=== PATIENT | female | born 1995 | race Caucasian/White ===

== ENCOUNTER 2016-10-13 08:58 | Emergency (ER) | payer OTHER ==
[~2016-10-13] VITALS: Ht 172.7 cm; Wt 81.6 kg
--- NOTE | 2016-10-13 09:37 | ED PSYCHIATRIC COMPLAINT ---
History of Present Illness General Chief Complaint: Psychiatric Related Complaint Stated Complaint: "I CANT TAKE THIS ANYMORE" Source: patient, family Exam Limitations: clinical condition Vital Signs & Intake/Output Vital Signs & Intake/Output Vital Signs Date Time Temp Pulse Resp B/P Pulse O2 O2 Flow FiO2 Ox Delivery Rate 10/13 1205 96.0 87 18 139/92 98 ED Intake and Output 10/14 0000 10/13 1200 Intake Total 1000 Output Total Balance 1000 Intake, IV 1000 Patient 180 lb Weight Allergies Coded Allergies: No Known Allergies (10/13/16) Triage Note: 21 Y/O FEMALE C/O "SEVERE ANXIETY WHEN I WAKE UP; NGA BEEN UP SINCE 399 AND I CANT SETTLE DOWN". FAMILY PRESENT, REPORT PT RECENTLY DIAGNOSED WITH PTSD, STATES THERAPIST IS TRYING TO FIND MEDICATIONS THAT WORK. PT RECENTLY ON KLONIPIN BUT WAS UNABLE TO REFILL SCRIPT DUE TO GOOD THURSDAY. LAST DOSE LAST WEEK. PT UNABLE TO SIT STILL DURING TRIAGE. MOANING/CRYING/YELLING OUT. Triage Nurses Notes Reviewed? yes Onset: Abrupt Duration: day(s): (2) Timing: multiple episodes today Severity: moderate, severe Associated Symptoms: anxiety, nausea, vomiting : No Patient currently breastfeeds: No HPI: 21 y/o female with history of anxiety and recent diagnosis of PTSD presents to the ER for chief complaint of severe anxiety, nausea and vomiting. Patient moaning. History being given by aunt. SHe was recently taken off her medications by her therpist/psychiatrist team. One of her medications was clonazepam. . No SI/HI. 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 She was doing well all weekend but suddenly this morning got very sick. She states she just can't take it anymore. Past History Travel History Traveled to [place] past 21 day No Medical History Any Pertinent Medical History? 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 Yes Review of Systems Review of Systems Constitutional: Denies: chills, fever. EENTM: Reports: no symptoms. Respiratory: Denies: hemoptysis, short of breath. Cardiovascular: Denies: chest pain, palpitations. GI: Reports: nausea, vomiting. Genitourinary: Reports: no symptoms. Musculoskeletal: Reports: no symptoms. Skin: Reports: no symptoms. Neurological/Psychological: Reports: anxiety, emotional problems. Hematologic/Endocrine: Denies: bruising, bleeding. Immunologic/Allergic: Denies: splenectomy. All Other Systems: Reviewed and Negative Physical Exam Physical Exam General Appearance: well developed/nourished, alert, awake, anxious, mild distress, moderate distress Head: atraumatic Eyes: Bilateral: PERRL, EOMI. Ears, Nose, Throat: normal pharynx, normal ENT inspection, hearing grossly normal Neck: normal inspection, supple Respiratory: normal breath sounds Cardiovascular: regular rate/rhythm Gastrointestinal: soft, non-tender Extremities: normal range of motion Neurological/Psychiatric: awake, alert, anxious Appearance/Memory/Insight: neat Behavoir/Eye Contact/Speech: decreased rate of speech, ANXIOUS, ROCKING BACK AND FORTH Thoughts/Hallucinations: no apparent hallucination Skin: intact, normal color, warm/dry SAD PERSONS Done? patient not suicidal Progress Differential Diagnosis: ANXIETY, PTSD, PANIC ATTACKS Plan of Care: Laboratory Tests 10/13/16 1147: Urine Opiates Screen < 100.00, Methadone Screen < 40, Barbiturate Screen < 60, Ur Phencyclidine Scrn < 6.00, Amphetamines Screen < 100, U Benzodiazepines Scrn < 85, Urine Cocaine Screen < 50, Urine Cannabis Screen > 80.00 H 11:56 AM PATIENT IMPROVED AFTER MEDS. PENDING CRISIS CONSULT. HAD LONG CONVERSATION WITH MOTHER AT BEDSIDE WHO DOESN'T WANT PATIENT TO WAIT HERE. MAY TAKE HER TO SEE OUTPATIENT THERAPIST. NO SI/NO HI. THEY WILL DECIDE AND LET ME KNOW. (MARYSOL LIGHT,DIANE) Departure Departure Time of Disposition: 1200 Disposition: HOME OR SELF CARE Condition: Stable Clinical Impression Primary Impression: Severe anxiety Referrals: UNKNOWN (PCP/Family) Additional Instructions: Follow-up with your therapist appointment at 1:00 today with Sandy Malin. Departure Forms: Customer Survey General Discharge Information
[2016-10-13 10:01] LABS: ABSOLUTE BASOPHIL COUNT 0 /CUMM (0.0-0.2); ABSOLUTE EOSINOPHIL COUNT 0 /CUMM (0.0-0.7); ABSOLUTE GRANULOCYTE CT 6.3 /CUMM (1.4-6.5); ABSOLUTE MONOCYTE COUNT 0.3 /CUMM (0.10-0.60); BASOPHIL % 0.1 % (0.0-2.0); EOSINOPHIL % 0 % (0-5); GRANULOCYTE % 82.6 % (42.2-75.2); HEMATOCRIT 39.6 % (37-47); MEAN CORPUSCULAR HGB 29.9 PG (27.0-31.0); MEAN CORPUSCULAR HGB CONC 34.1 G/DL (33.0-37.0); MEAN CORPUSCULAR VOLUME 87.7 FL (81.0-99.0); MEAN PLATELET VOLUME 8.9 FL (7.4-10.4); PLATELET COUNT 221 /CUMM (130-400); RBC DISTRIBUTION WIDTH 13.8 % (11.5-14.5); RED BLOOD CELL CT 4.51 /CUMM (4.20-5.40); WHITE BLOOD CELL COUNT 7.7 /CUMM (4.8-10.8)
--- NOTE | 2016-10-13 10:08 | ED PSY CRISIS COLLATERAL NOTE ---
Collateral Note Collateral Note Family/Inform/Ross Contacts: Pt's therapist Sandy Jennifer called to inform that she recommended that pt's family bring her to the ED due to severe anxiety. Pt has been short of breath and crying. Pt denies any SI. Pt was admitted to [facility] earlier this year. Pt out pt prescriber is Dr. Bunn . Pt had stopped her zoloft and tried to re-start it this weekend but was not able to tolerate it. Sandy would like to be updated on pt's final dispo and can be called for any questions or continuing collaboration.
[2016-10-13 12:05] VITALS: BP 139/92
[2016-12-15] MEDS ORDERED: ZOFRAN ODT4 M1 SL (11:48)
[2016-12-15] MEDS ORDERED: ATIVAN0.5 M1 PO (11:48)
== END 2016-10-13 12:25 ==
LOC: ERH 08:58
PROVIDERS: Emergency Medicine
DX: F41.9 Anxiety disorder, unspecified (principal); R11.2 Nausea with vomiting, unspecified
CPT/HCPCS: 80307; 96361; 96374; 96375; 96376; G0480; J2405

== ENCOUNTER 2016-11-19 16:27 | Emergency (ER) | payer OTHER ==
[~2016-11-19] VITALS: Ht 172.7 cm; Wt 79.4 kg
--- NOTE | 2016-11-19 16:49 | ED PSYCHIATRIC COMPLAINT ---
History of Present Illness General Chief Complaint: Psychiatric Related Complaint Stated Complaint: ANXIETY POSITIVE SI Source: patient, family Exam Limitations: clinical condition, poor historian, physical impairment Vital Signs & Intake/Output Vital Signs & Intake/Output Vital Signs Date Time Temp Pulse Resp B/P B/P Pulse O2 O2 Flow FiO2 Mean Ox Delivery Rate 11/20 0926 97.0 122 26 162/80 100 Room Air 11/20 0639 98.6 106 16 127/70 97 Room Air 11/20 0303 97.2 94 16 118/64 97 Room Air 11/19 1632 97.8 103 16 144/100 97 Room Air ED Intake and Output 11/20 0000 11/19 1200 Intake Total 200 Output Total Balance 200 Intake, Oral 200 Patient 175 lb Weight Weight Reported by Patient Measurement Method Allergies Coded Allergies: No Known Allergies (10/13/16) Triage Note: PT STATES SHE IS HAVING A PANIC ATTACK AND SHE CAN'T TAKE IT. PT TOLD HER MOTHER THAT SHE DOESN'T WANT TO LIVE LIKE THIS ANYMORE. PT MOTHER STATES PT MAKES HERSELF VOMIT, PT HAS HAD ENDOSCOPY AND NOTHING WAS WRONG. PT MOM STATES SHE BURRIED HER GRANDFATHER TODAY. PT VOMITING BILE BUT MOM STATES SELF INDUCED. PT TOOK KLONOPIN A WHILE AGO BUT IT DID/T HELP. Triage Nurses Notes Reviewed? yes Onset: Abrupt Duration: week(s): Timing: recent history : No Patient currently breastfeeds: No HPI: 11/19/16 6:10 pm 21-year-old female presents to the emergency department for severe anxiety, depression, suicidal ideation and epigastric abdominal pain. According to the patient's mother she has been having severe issues over the past 7 months. She' s been seen and evaluated multiple times. They still do not have a diagnosis. 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 She periodically gets episodes of agitation and self-induced vomiting. She also says she has epigastric abdominal pain. She had an outpatient upper endoscopy which was negative according to the mother. Now over the past several hours she again became very anxious, she expressed that she was not feeling well and that she wanted to . Today they buried the patient's uncle. The other symptoms of an abrupt, the duration has been 7 months, the severity is significant; as her symptoms are quite difficult to the emergency department for care. (STEVIE MCCOY DO) Past History Travel History Traveled to [place] past 21 day No Medical History Any Pertinent Medical History? 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 No (STEVIE MCCOY DO) Review of Systems Review of Systems Constitutional: Denies: fever. EENTM: Reports: no symptoms. Respiratory: Denies: short of breath. Cardiovascular: Denies: chest pain. GI: Reports: abdominal pain, vomiting. Genitourinary: Reports: no symptoms. Musculoskeletal: Reports: no symptoms. Skin: Reports: no symptoms. Neurological/Psychological: Reports: anxiety, depressed. Hematologic/Endocrine: Reports: no symptoms. (STEVIE MCCOY DO) Physical Exam Physical Exam General Appearance: severe distress Head: atraumatic Eyes: Bilateral: normal appearance, PERRL, EOMI. Ears, Nose, Throat: normal pharynx, normal ENT inspection Neck: normal inspection, supple, full range of motion Respiratory: normal breath sounds, chest non-tender, no respiratory distress Cardiovascular: regular rate/rhythm Gastrointestinal: soft, tenderness Extremities: normal range of motion Neurological/Psychiatric: no motor/sensory deficits, awake, agitated, alert Appearance/Memory/Insight: disheveled Behavoir/Eye Contact/Speech: cooperative Thoughts/Hallucinations: normal thought pattern Skin: intact, normal color, warm/dry SAD PERSONS SAD PERSONS Response Value Depression/Hopelessness? yes 2 Previous Attempts/Psych Care yes 1 Rational Thinking Loss? yes 2 Single//? yes 1 Social Support? has support 0 Stated Future Intent? yes 2 Total 8 SAD PERSONS Done? yes (STEVIE MCCOY DO) Physical Exam Gastrointestinal: tenderness (YANIV LIGHT,STEVIE Cowart) Progress Differential Diagnosis: drug intoxication, drug overdose, drug withdrawal, depression Plan of Care: Orders Procedure Date/time Status Add-on Test (ER Only) 11/19 1950 Active URINALYSIS 11/19 1930 Complete URINE DRUGS OF ABUSE 11/19 1924 Complete Continuous Observation Monitor 11/19 180 Active ED CRISIS PSYCH CONSULT 11/19 1805 Active LIPASE 11/19 173 Complete HUMAN BETA HCG SCREEN 11/19 1729 Complete COMPREHENSIVE METABOLIC PANEL 11/19 1729 Complete CBC WITHOUT DIFFERENTIAL 11/19 1729 Complete AMYLASE 11/19 1729 Complete Current Medications Sig/Annie Start time Last Medication Dose Stop Time Status Admin Al Hydroxide/Mg 30 ML ONCE ONE 11/20 929 AC Hydroxide 11/20 930 (Maalox Plus) Omeprazole 20 MG ONCE ONE 11/20 929 AC (Prilosec) 11/20 930 Laboratory Tests 11/19/16 193: Urine Opiates Screen < 100.00, Methadone Screen < 40, Barbiturate Screen < 60, Ur Phencyclidine Scrn < 6.00, Amphetamines Screen < 100, U Benzodiazepines Scrn < 85, Urine Cocaine Screen < 50, Urine Cannabis Screen 79.90 H, Urine Color YEL , Urine Clarity CLEAR, Urine pH 7.5, Ur Specific [place] 1.025, Urine Protein 30 H, Urine Ketones 40 H, Urine Nitrite NEG, Urine Bilirubin NEG, Urine Urobilinogen 1.0, Ur Leukocyte Esterase NEG, Ur Microscopic SEDIMENT EXAMINED, Urine RBC 1-3, Urine WBC 3-5 H, Ur Epithelial Cells MANY H, Urine Bacteria MANY H, Urine Mucus MANY H, Urine Hemoglobin LARGE H, Urine Glucose NEG 11/19/16 183: Anion Gap 14, Estimated GFR > 60, BUN/Creatinine Ratio 23.3, Glucose 116 H, Calcium 10.3 H, Total Bilirubin 0.6, AST 22, ALT 39, Alkaline Phosphatase 59, Total Protein 7.5, Albumin 4.9, Globulin 2.6, Albumin/Globulin Ratio 1.9, Amylase 37, Lipase 52, Total Beta HCG NEGATIVE, CBC w Diff NO MAN DIFF REQ, RBC 4.80, MCV 87.5, MCH 29.2, RDW 13.4, MPV 9.0, Gran % 91.9 H, Lymphocytes % 5.7 L, Monocytes % 2.4, Eosinophils % 0, Basophils % 0 L, Absolute Granulocytes 11.7 H, Absolute Lymphocytes 0.7 L, Absolute Monocytes 0.3, Absolute Eosinophils 0, Absolute Basophils 0, PUBS MCHC 33.4 7:14 PM 11/19 PATIENT SIGNED OUT TO ME BY DR MCCOY. PENDING CRISIS EVALUATION. (MARYSOL LIGHTDIANE) Initial ED EKG: none (STEVIE MCCOY DO) Hand-Off Endorsed To: LOPEZ PRASAD MD Endorsed Time: 2300 Pending: consult (CRISIS REEVLUATION) (DIANE HANEY MD) Hand-Off Endorsed To: STEVIE CLINE MD Endorsed Time: 0700 Pending: consult (LOPEZ PRASAD MD) Comments: 11/20/2016 7:42:43 AM patient signed out to me by Dr. 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 11/20/2016 9:29:35 AM crisis evaluation complete. Patient has a follow-up appointment with [facility]. Aleksandra waiting for her mother to pick her up. When asked about abdominal pain and she states that she is having acid reflux discomfort for which she usually takes Nexium. I have ordered Maalox for more prompt relief of her discomfort along with the Nexium. (STEVIE CLINE MD) Departure Departure Disposition: STILL A PATIENT Condition: Stable Referrals: UNKNOWN (PCP/Family) Departure Forms: Customer Survey General Discharge Information Comments 7 pm The patient will be signed out to Dr Haney. (STEVIE MCCOY DO) Departure Clinical Impression Primary Impression: Anxiety Secondary Impressions: Acid reflux Qualifiers: Esophagitis presence: without esophagitis Qualified Code: K21.9 - Gastro-esophageal reflux disease without esophagitis Depression Qualifiers: Depression Type: unspecified Qualified Code: F32.9 - Major depressive disorder, single episode, unspecified Additional Instructions: Follow-up with your IOP appointment today at 2 PM. Follow-up with your primary care physician for reevaluation of your abdominal pain. Return if any concerns or sudden worsening. Please note that there might be incidental findings in your evaluation that are unrelated to the current emergency department visit. Please notify your primary care doctor about this emergency department visit in order to obtain and review all of the testing performed so that these incidental findings can be monitored as needed. If you had an x-ray performed, please understand that some fractures may not be seen on the initial set of x-rays. If your symptoms persist you might need a repeat set of x-rays to check for such a fracture. If you had a laceration evaluated, please understand that foreign bodies such as glass or wood may not be visible to the naked eye or on plain x-rays. If the wound becomes red, swollen, increasingly more painful or if there is any drainage from the wound, please have it reevaluated by a physician for the possibility of a retained foreign body. Thank you for choosing the [facility] Emergency Department for your care. It was a pleasure to serve you today. Stevie Cline M.D. [facility] (YANIV LIGHT,STEVIE Cowart) Critical Care Note Critical Care Note Critical Care Time: 30-74 min Comments: The patient was treated with IM Ativan. She was placed in a quiet room. A sitter was ordered. Crisis consultation was requested she was given a GI cocktail. She was also treated with Zofran. (STEVIE MCCOY DO)
[2016-11-19 18:51] LABS: ABSOLUTE BASOPHIL COUNT 0 /CUMM (0.0-0.2); ABSOLUTE EOSINOPHIL COUNT 0 /CUMM (0.0-0.7); ABSOLUTE GRANULOCYTE CT 11.7 /CUMM (1.4-6.5); ABSOLUTE LYMPH COUNT 0.7 /CUMM (1.2-3.4); ABSOLUTE MONOCYTE COUNT 0.3 /CUMM (0.10-0.60); BASOPHIL % 0 % (0.0-2.0); EOSINOPHIL % 0 % (0-5); MEAN CORPUSCULAR HGB 29.2 PG (27.0-31.0); MEAN CORPUSCULAR HGB CONC 33.4 G/DL (33.0-37.0); MEAN CORPUSCULAR VOLUME 87.5 FL (81.0-99.0); PLATELET COUNT 254 /CUMM (130-400); RBC DISTRIBUTION WIDTH 13.4 % (11.5-14.5); WHITE BLOOD CELL COUNT 12.7 /CUMM (4.8-10.8)
[2016-11-19 19:04] LABS: GRANULOCYTE % 91.9 % (42.2-75.2)
--- NOTE | 2016-11-19 20:03 | ED PSYCH CRISIS CONSULTATION ---
Crisis Consult Basic Assessment Date of Consult: 11/19/16 Responsible Person/Accompanied By: brought in by her Mom Insurance Authorization: Insurance #1: Insurance name: NATALIA CASAS Phone number: Policy number: [id number] Group number: Authorization number: ED Provider: Patient's ED Provider: LEESA MCCOY DO Primary Care Physician: Patient's PCP: UNKNOWN PCP's Phone Number: Current Psychiatrist: A in [place] name unknown Chief Complaint: Psychiatric Related Complaint Patient's Quote: "my anxiety" Present Illness: Pt is a 21 year old female, arriving to ER, after being at her Uncles today and his wake last night. she reports she felt anxious at dinner last night after the wake, and reports I knew this was coming, because "I had a lot of friends of overdoses, and a few family members pass away recently and this , just triggered me". Pt is seen by Sandy Malin outpatient, and is prescribed zoloft 150mg and klonidine by a DR in [place] but cant recall his name. Pt reports she weaned herself off of klonipin, but had a few left over and took one today. She uses cannabis often and has for the past 3 years. She was seen at [facility] in Jul of this year, and did not follow up with IOP.. 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 Pt was given ativan in ER, and felt it was helpful, but she reports feeling tired, and was groggy during evaluation. Upon arrival to ER, she was unconsolable and stated she couldnt live this way anymore, pt denies active si and denies previous attempts. Denies stephania/ah/vh. Patient's Address: [address] [place] [address] Other Who Do You Live With? Other (see notes) Family/Informants Interviewed: Her Mother called and reports she had a bad day, and she brought her here to help regulate her anxiety and decrease this symptomology. She is concerned that she is smoking pot, but she belives she is lonely, and that something is wrong with her. Allergies - Coded Allergies: No Known Allergies (10/13/16) Laboratory Results: Laboratory Tests 11/19/16 1931: Urine Opiates Screen Pending, Methadone Screen Pending, Barbiturate Screen Pending, Ur Phencyclidine Scrn Pending, Amphetamines Screen Pending, U Benzodiazepines Scrn Pending, Urine Cocaine Screen Pending, Urine Cannabis Screen Pending, Urine Color Pending, Urine Clarity Pending, Urine pH Pending, Ur Specific [place] Pending, Urine Protein Pending, Urine Ketones Pending, Urine Nitrite Pending, Urine Bilirubin Pending, Urine Urobilinogen Pending, Ur Leukocyte Esterase Pending, Ur Microscopic Pending, Urine Hemoglobin Pending, Urine Glucose Pending 11/19/16 1836: Anion Gap 14, Estimated GFR > 60, BUN/Creatinine Ratio 23.3, Glucose 116 H, Calcium 10.3 H, Total Bilirubin 0.6, AST 22, ALT 39, Alkaline Phosphatase 59, Total Protein 7.5, Albumin 4.9, Globulin 2.6, Albumin/Globulin Ratio 1.9, Amylase 37, Lipase 52, Total Beta HCG NEGATIVE, CBC w Diff NO MAN DIFF REQ, RBC 4.80, MCV 87.5, MCH 29.2, RDW 13.4, MPV 9.0, Gran % 91.9 H, Lymphocytes % 5.7 L, Monocytes % 2.4, Eosinophils % 0, Basophils % 0 L, Absolute Granulocytes 11.7 H, Absolute Lymphocytes 0.7 L, Absolute Monocytes 0.3, Absolute Eosinophils 0, Absolute Basophils 0, PUBS MCHC 33.4 (JAVED WESTFALL,ALVARO) Addendum Addendum Crisis re-eval : Pt presents as cooperative and friendly. She denies feeling suicidal/homicidal and no AVH. Pt says her mom thinks because she doesn't like feeling anxious that means she is SI+ which is not the case. Pt does not have hx of suicide attempts and has no plan or intent. Pt stated recent stressors of bereavement issues losing friends and family since February. She said she does not like how she physically feels- ie panic attacks, nausea and crying. Pt does not feel she needs inpatient admission and would like to explore IOP. This comic writer discussed with the pt: the possible symptoms of her cannabis use can attribute to her increase in anxiety/panic/nausea --as pt reports daily use. Pt is willing to stop use for program. This comic writer spoke with mom Kirti, who is adamant that the pt needs to change and she can't take her anxiety anymore. Clinician discussed the IOP program at length with mom and the benefits of HLOC as it gives structure/group and individual support and medication management. Mom is aware pt needs to follow through with recommendations to address symptoms of depression and anxiety. SW consulted with Dr. Bhatia and recommends IOP LOC . Pt is scheduled today for IOP intake at 2PM. Pt is agreeable to attend, mom is aware and will transport pt there. 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 Past Surgical History Surgical History: non-contributory Psychosocial History Strengths/Capabilities: employed, family involvement, in treatment Psychiatric Treatment History Psych Treatment Psychiatric Treatment Yes Inpatient Treatment Yes Outpatient Treatment Yes Location of Treatment Sandy Gonzalez LCSW Reason for Treatment anxiety/PTSD/panic Dates of Treatment Jul 2016 for 3 days and currently with outpatient Response to Treatment She is not managing anxiety Diagnosis by History: anxiety PTSD panic Substance Use/Abuse History Drug Use/Abuse Substances Used/Abused Yes Substance Used/Abused Marijuana First Use 3 years ago Last Used few days ago How much used/taken unknown How often varies For how long 3 years Route of use inhale Substance Abuse Treatment Substance Abuse Treatment Past Substance Abuse [place] No (JAVED WESTFALL,ALVARO) Current Mental Status Mental Status Orientation: Person, Place, Situation Affect: Anxious, Flat, Lonely Speech: Soft, WNL Neuro-vegetative: Energy Decreased, Helpless, Sleep Disturbance Appearance Appearance- Dress/Hygiene: tearful, well groomed Behaviors Thought Process: Flight of Ideas Thought Content: Somatic Memory: WNL Insight: Fair SI/HI Risk Assessment Past Suicidal Ideation/Attempts No Current Suicidal Ideation/Att No Past Homicidal Ideation/Att: No Current Homicidal Ideation/Attempts No Degree of Intent: Self Destructive/No , Thoughts/No Intent Risk Factors: high anxiety/distress, substance abuse, poor impulse control, limited support Lethality Ratin PTSD Checklist PTSD Done? patient declined ED Management Sitter: Yes Restraints: No (ALVARO BURT LCSW) DSM5/PS Stressors/Medical Prob Diagnosis' (DSM 5, Stressors, Medical): Panic/[id number] Unspecified trauma F43.10 Current GAF: 32 (ALVARO BURT LCSW) Departure Disposition Psych Medical Clearance Date: 11/19/16 Medically Cleared at: 1900 Time Started: 1899 Time Ended: 1999 Psychiatrist Consulted: Jerica LIGHT,Edward Date Disposition Established: 11/19/16 Time Disposition Established: 2021 Plan for Disposition - Modality: Hold over/ re eval for possible inpatient Rationale for Disposition: consulted with Dr. Pizano pt to be held over, Mom has some concerns with how daughter is behaving lately, pt has high anxietypanic symptoms. Referrals UNKNOWN (PCP/Family) (ALVARO BURT LCSW)
[2016-11-20 09:52] VITALS: BP 152/72
[2016-12-15] MEDS ORDERED: ZOFRAN ODT4 M1 SL (11:48)
[2016-12-15] MEDS ORDERED: ATIVAN0.5 M1 PO (11:48)
== END 2016-11-20 09:54 ==
LOC: ERH 16:27
PROVIDERS: Emergency Medicine
DX: F41.9 Anxiety disorder, unspecified (principal); K21.9 Gastro-esophageal reflux disease without esophagitis; F32.9 Major depressive disorder, single episode, unspecified
CPT/HCPCS: 80307; 81001; 96372; G0463; J3101

== ENCOUNTER 2016-12-17 07:18 | Emergency (ER) | payer OTHER ==
[~2016-12-17] VITALS: Ht 172.7 cm; Wt 81.6 kg
[~2016-12-17 07:18] MED LIST: ATIVAN0.5 M1 PO; ZOFRAN ODT4 M1 SL
[2016-12-17 07:22] VITALS: BP 130/74
--- NOTE | 2016-12-17 07:31 | ED GI/GU/ABDOMINAL COMPLAINT ---
History of Present Illness General Chief Complaint: Abdominal Pain/Flank Pain Stated Complaint: ABD PAIN,"ACID REFULX" Source: patient, old records Exam Limitations: no limitations Vital Signs & Intake/Output Vital Signs & Intake/Output Vital Signs Date Time Temp Pulse Resp B/P B/P Pulse O2 O2 Flow FiO2 Mean Ox Delivery Rate 12/17 0722 98.0 68 18 130/74 100 Allergies Coded Allergies: No Known Allergies (10/13/16) Reconcile Medications Lorazepam (Ativan) 0.5 MG TABLET 1 TAB PO BIDP PRN anxiety Ondansetron (Zofran Odt) 4 MG TAB.RAPDIS 1 TAB SL TID nausea Triage Note: PT TO ED FOR ABD PAIN, VERY HISTRIONIC IN TRIAGE, PT IMMEDIATELY STATING "I NEED TO BE OUT OF HERE BY 8:30, I JUST NEED PAIN MEDS AND THEN IM LEAVING" Triage Nurses Notes Reviewed? yes ? N Is pt currently ? No Onset: Abrupt Duration: hour(s): (FEW) Timing: multiple episodes today Location: epigastric Radiation: chest Associated Symptoms: abdominal pain, nausea/vomiting HPI: This is a 21 old female presents to the ER with chief complaint of bad acid reflux. She was moaning and crying in triage. She states that she vomited multiple times since 3 AM. She is a history of reflux is on Nexium daily. She did not take her Nexium today. She states she just needs a GI cocktail which usually resolves her acid reflux and needs to go to work at 8:30. Patient denies feeling anxious. She was here 2 days ago for feeling very anxious. She states she felt anxious earlier but calmed herself down. Patient currently living with her boyfriend's parents. Past History Travel History Traveled to [place] past 21 day No Medical History Any Pertinent Medical History? 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 No Review of Systems Review of Systems Constitutional: Denies: chills, fever. EENTM: Reports: no symptoms. Respiratory: Denies: cough, short of breath. Cardiovascular: Denies: chest pain, palpitations. GI: Reports: see HPI, abdominal pain, nausea, vomiting. Genitourinary: Reports: no symptoms. Musculoskeletal: Reports: no symptoms. Skin: Reports: no symptoms. Neurological/Psychological: Reports: no symptoms. Hematologic/Endocrine: Denies: bruising, bleeding, polyuria, polydipsia. Immunologic/Allergic: Denies: splenectomy. All Other Systems: Reviewed and Negative Physical Exam Physical Exam General Appearance: well developed/nourished, alert, awake, anxious, mild distress, moderate distress Head: atraumatic Eyes: Bilateral: PERRL, EOMI. Ears, Nose, Throat, Mouth: hearing grossly normal, moist mucous membrane Neck: normal inspection, supple, full range of motion Respiratory: normal breath sounds, chest non-tender, no respiratory distress Cardiovascular: regular rate/rhythm Peripheral Pulses: 2+ radial (R), 2+ radial (L) Gastrointestinal: normal bowel sounds, soft, tenderness (MILD EPIGASTRIC) Extremities: normal range of motion Neurologic/Psych: awake, alert, oriented x 3 Skin: intact, normal color, warm/dry Core Measures ACS in differential dx? No Severe Sepsis Present: No Septic Shock Present: No Progress Differential Diagnosis: pancreatitis, PUD/GERD, anxiety Plan of Care: GI COCKTAIL ADMINISTERED 7:59 AM PATIENT IMPROVED AFTER GI COCKTAIL. WISHES TO BE DISCHARGED AT THIS TIME. Initial ED EKG: none Departure Departure Time of Disposition: 758 Disposition: HOME OR SELF CARE Condition: Stable Clinical Impression Primary Impression: GERD (gastroesophageal reflux disease) Referrals: JONES RAO MD (PCP/Family) Additional Instructions: Continue your Nexium for your acid reflux. Please continue with dry of the appointments regarding anxiety. Follow up with your doctor in the office. Departure Forms: Customer Survey General Discharge Information
== END 2016-12-17 08:00 ==
LOC: ERH 07:18
DX: K21.9 Gastro-esophageal reflux disease without esophagitis (principal)

== ENCOUNTER 2017-10-28 10:14 | Emergency (ER) | payer OTHER ==
[~2017-10-28] VITALS: Ht 172.7 cm; Wt 99.8 kg
--- NOTE | 2017-10-28 10:51 | ED PSYCHIATRIC COMPLAINT ---
History of Present Illness General Chief Complaint: General Adult Stated Complaint: ANXIET ATTACK, PER MOM Source: patient, mother Exam Limitations: clinical condition Vital Signs & Intake/Output Vital Signs & Intake/Output Vital Signs Date Time Temp Pulse Resp B/P B/P Pulse O2 O2 Flow FiO2 Mean Ox Delivery Rate 10/28 1307 97.6 87 16 114/72 99 Room Air 10/28 1022 97.8 93 22 166/88 98 Room Air Allergies Coded Allergies: No Known Allergies (10/13/16) Reconcile Medications Mirtazapine 15 MG TABLET 1 TAB PO QPM SLEEP (Reported) Sertraline HCl (Zoloft) 100 MG TABLET 1 TAB PO DAILY MENTAL HEALTH (Reported) Triage Note: PT FROM HOME C/OC ANXIETY ATTACK. PT IS HAVING AN ACTIVE PANIC ATTACK IN TRIAGE, CRYING, YELLING, AND SQUEEZING CHEST. PT IS UNABLE TO ANSWER QUESTIONS, PTS MOTHER STATES SHE HAS PANIC ATTACKS OFTEN IN THE PAST 2 WEEK 2 SEPERATE PANIC ATTACKS. VSS. PT STATES "CHEST PAIN AND SOB" PTS VSS. Triage Nurses Notes Reviewed? yes : No Patient currently breastfeeds: No HPI: Patient presents for evaluation of severe chest and abdominal pain with vomiting induced by anxiety. Patient has had this same symptom complex in the past. She is currently taking Zoloft for anxiety but it doesn't seem to be helping all that much. History is extremely limited secondary to the profound distress of this patient. History obtained primarily from mother. Past History Travel History Traveled to [place] past 21 day No Medical History Any Pertinent Medical History? 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 No Review of Systems Review of Systems Constitutional: Reports: no symptoms. EENTM: Reports: no symptoms. Respiratory: Reports: no symptoms. Cardiovascular: Reports: no symptoms. GI: Reports: see HPI. Genitourinary: Reports: no symptoms. Musculoskeletal: Reports: no symptoms. Skin: Reports: no symptoms. Neurological/Psychological: Reports: see HPI. Hematologic/Endocrine: Reports: no symptoms. Immunologic/Allergic: Reports: no symptoms. All Other Systems: Reviewed and Negative Physical Exam Physical Exam General Appearance: see below Neurological/Psychiatric: see below Comments: General: Alert, calm, cooperative Head: Normocephalic, atraumatic Eyes: Normal inspection, no nystagmus, EOMI Ears: Normal inspection Nose: Normal inspection Throat: Moist mucosa Neck: Supple, no goiter Heart: Regular rate and rhythm, no murmurs rubs or gallops Lungs: Clear to auscultation bilaterally with good air entry Abdomen: Soft nontender nondistended, normal bowel sounds Chest: Nontender Extremities: Normal range of motion grossly, mild tremors present, no cyanosis clubbing or edema of the upper extremities Neurologic: cranial nerves II through XII grossly intact, speech clear, gait normal Psychiatric: Severely anxious and distressed SAD PERSONS Done? patient not suicidal Progress Differential Diagnosis: anxiety, bipolar disorder, personality disorder, malingering Plan of Care: Orders Procedure Date/time Status Add-on Test (ER Only) 10/28 1537 Active URINE DRUG SCREEN FOR ER ONLY 10/28 1226 Complete ETHANOL 10/28 1226 Complete CBC WITHOUT DIFFERENTIAL 10/28 1226 Complete BASIC METABOLIC PANEL 10/28 1226 Complete ED CRISIS PSYCH CONSULT 10/28 1226 Active Laboratory Tests 10/28/17 1336: Urine Opiates Screen < 100, Methadone Screen 40, Barbiturate Screen < 60, Ur Phencyclidine Scrn < 6.00, Amphetamines Screen < 100, U Benzodiazepines Scrn < 85, Urine Cocaine Screen < 50, Urine Cannabis Screen > 80.00 H 10/28/17 1255: Anion Gap 11, Estimated GFR > 60, BUN/Creatinine Ratio 26.0 H, Glucose 117 H, Calcium 9.6, CBC w Diff NO MAN DIFF REQ, RBC 5.00, MCV 87.7, MCH 29.0, MCHC 33.0 , RDW 14.1, MPV 8.8, Gran % 88.7 H, Lymphocytes % 8.0 L, Monocytes % 3.3, Eosinophils % 0, Basophils % 0, Absolute Granulocytes 10.7 H, Absolute Lymphocytes 1.0 L, Absolute Monocytes 0.4, Absolute Eosinophils 0, Absolute Basophils 0, Serum Alcohol < 10.0 Departure Departure Disposition: HOME OR SELF CARE Condition: Stable Clinical Impression Primary Impression: Anxiety Referrals: Momo Chong MD (PCP/Family) Additional Instructions: Please follow up with outpatient counseling program as soon as possible. Please notify your primary care physician of this emergency department visit and treatment plan. Return if any concerns or sudden worsening. Departure Forms: Customer Survey General Discharge Information
[2017-10-28 13:11] LABS: ABSOLUTE BASOPHIL COUNT 0 /CUMM (0.0-0.2); ABSOLUTE EOSINOPHIL COUNT 0 /CUMM (0.0-0.7); ABSOLUTE GRANULOCYTE CT 10.7 /CUMM (1.4-6.5); ABSOLUTE MONOCYTE COUNT 0.4 /CUMM (0.10-0.60); BASOPHIL % 0 % (0.0-2.0); EOSINOPHIL % 0 % (0-5); HEMATOCRIT 43.8 % (37-47); MEAN CORPUSCULAR VOLUME 87.7 FL (81.0-99.0); MEAN PLATELET VOLUME 8.8 FL (7.4-10.4); PLATELET COUNT 252 /CUMM (130-400); RBC DISTRIBUTION WIDTH 14.1 % (11.5-14.5); WHITE BLOOD CELL COUNT 12.1 /CUMM (4.8-10.8)
[2017-10-28 13:43] LABS: GRANULOCYTE % 88.7 % (42.2-75.2)
[2017-10-28] MEDS ORDERED: ZOLOFT100 M1 PO (14:33)
[2017-10-28] MEDS ORDERED: MIRTAZAPINE15 M2 PO (14:33)
--- NOTE | 2017-10-28 15:22 | ED PSYCH CRISIS CONSULTATION ---
Crisis Consult Basic Assessment Date of Consult: 10/28/17 Responsible Person/Accompanied By: mom Insurance Authorization: Insurance #1: Insurance name: NATALIA CASAS Phone number: Policy number: [id number] Group number: Authorization number: ED Provider: Patient's ED Provider: Stevie Cline MD Primary Care Physician: Patient's PCP: Momo Chong MD PCP's Current Psychiatrist: none Chief Complaint: General Adult Patient's Quote: "When I wake up in the morning I have so much anxiety" Present Illness: Pt is a 22 year old female presenting to the ED with severe anxiety/ panic attack. Mother brought pt to the ED. Dr. Cline gave pt IM Ativan to help relieve symptoms of panic attack. Pt reports that she has had panic attacks for several years. Pt describes these panic atacks as overwhelming and powerful feelings, like an elephant is sitting on her chest or ants are running through her veins. She also experiences nausea, sweating and has difficulty breathing. Pt does not believe she is going to during these attacks but is fearful that these attacks will return. Pt denies SI /HI/AH/VH. Pt reports she goes through periods of times in which they occur multiple times per week but then goes for several months without a panic attack. Pt reports today was her 2nd panic attack this week. Pt is prescribed Zoloft and Mirtazepine by her PCP. She did have a prescription for Gabapentin that was prescribed as needed for anxiety but pt reports she ran out of the medication. Pt has seen a few therapists before over the last two years. The last therapist she saw was Sandy Malin. Pt reports she last saw her last summer- pt missed an appointment and never rescheduled and therapist didn't reach out. Pt did see a psychiatrist at one point. She doesn't remember his name. He prescribed Clonidine and pt reports it didn't help. Pt did 3 weeks of [facility] IOP but it interferred with her work schedule so was referred out to outpatient therapy. 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 Pt does smoke Marijuna daily (1 bowl daily). Utox was positive for cannabis and BAL was zero. We spoke about how the use of marijuana can increase anxiety. Pt reports she knows this. Mother stated that pt was told this before by a ED doctor a year ago. Pt acknowledges the information but did not demonstrate a readiness to stop smoking. Crisis completed C-SSRS. Pt has the following risk factors: previous psychiatric dx and treatment, not currently in tx, substance use, and severe anxiety. Pt has the following protective factors: identifies a reason for living, supportive family, engaged in work. [facility] consulted with Dr. Collins, on-call psychiatrist. He recommends pt have a test and a TSH test. He is in agreement with discharging patient to follow up with an outpatient provider of her choice. Pt was given contact information for the following rescources: [facility], [facility], [facility] and [facility]. [facility] requested Dr. Cline add test and TSH level. He added both tests and stated ED would call pt if needed. Patient's Address: [address] [place] [address] Other Who Do You Live With? Significant Other Family/Informants Interviewed: mom was present at end of crisis assessment Allergies - Coded Allergies: No Known Allergies (10/13/16) Current Medications - Scheduled Medications Mirtazapine 15 MG TABLET 1 TAB PO QPM SLEEP #90 (Reported) Entered as Reported by Guzman Orona on 10/28/17 1433 Sertraline HCl (Zoloft) 100 MG TABLET 1 TAB PO DAILY MENTAL HEALTH (Reported) Entered as Reported by Guzman Orona on 10/28/17 1433 Laboratory Results: Laboratory Tests 10/28/17 1336: Urine Opiates Screen < 100, Methadone Screen 40, Barbiturate Screen < 60, Ur Phencyclidine Scrn < 6.00, Amphetamines Screen < 100, U Benzodiazepines Scrn < 85, Urine Cocaine Screen < 50, Urine Cannabis Screen > 80.00 H 10/28/17 1255: Anion Gap 11, Estimated GFR > 60, BUN/Creatinine Ratio 26.0 H, Glucose 117 H, Calcium 9.6, TSH Pending, Total Beta HCG NEGATIVE, CBC w Diff NO MAN DIFF REQ, RBC 5.00, MCV 87.7, MCH 29.0, MCHC 33.0, RDW 14.1, MPV 8.8, Gran % 88.7 H, Lymphocytes % 8.0 L, Monocytes % 3.3, Eosinophils % 0, Basophils % 0, Absolute Granulocytes 10.7 H, Absolute Lymphocytes 1.0 L, Absolute Monocytes 0.4, Absolute Eosinophils 0, Absolute Basophils 0, Serum Alcohol < 10.0 Past History Past Medical History Neurological: NONE EENT: NONE Cardiovascular: NONE Respiratory: NONE Gastrointestinal: GERD Hepatic: NONE Renal: NONE Musculoskeletal: NONE Psychiatric: anxiety, substance abuse Endocrine: NONE Blood Disorders: NONE Cancer(s): 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 Past Surgical History Surgical History: non-contributory Psychosocial History Strengths/Capabilities: Employed Supportive Mom and Boyfriend Physical Limitations (Interventions): none noted Psychiatric Treatment History Psych Treatment Psychiatric Treatment Yes Inpatient Treatment No Outpatient Treatment Yes Location of Treatment various- , other outpatient providers Reason for Treatment anxiety Dates of Treatment short stents of tx over last 2-3 years Response to Treatment poor, pt stopped attending IOP due to the time committment, stopped seeing two therapists Diagnosis by History: anxiety ptsd panic Substance Use/Abuse History Drug Use/Abuse Substances Used/Abused Yes Substance Used/Abused Marijuana First Use unk Last Used 10/27/17 How much used/taken 1 bowl How often daily For how long several years Route of use inhalation Substance Abuse Treatment Substance Abuse Treatment Past Substance Abuse [place] No Current Mental Status Mental Status Orientation: Person, Place, Situation Affect: Anxious (tearful) Speech: Soft Neuro-vegetative: Sleep Disturbance Appearance Appearance- Dress/Hygiene: pt presents in blue paper scrubs adequate hygeine no remarkable features Behaviors Thought Process: Logical/Rational Thought Content: WNL Memory: WNL Insight: Fair SI/HI Risk Assessment Past Suicidal Ideation/Attempts No Current Suicidal Ideation/Att No Past Homicidal Ideation/Att: No Current Homicidal Ideation/Attempts No Degree of Intent: None Risk Factors: age (under 24/over 65), high anxiety/distress, substance abuse Lethality Ratin (mild) PTSD Checklist PTSD Done? patient declined ED Management Sitter: Yes Restraints: No DSM5/PS Stressors/Medical Prob Diagnosis' (DSM 5, Stressors, Medical): F41.0 Panic Disorder F12.20 Cannabis Use Disorder, Severe Stressors: work schedule Medical: GERD Current GAF: 48 Departure Disposition Psych Medical Clearance Date: 10/28/17 Medically Cleared at: 1500 Time Started: 1500 Time Ended: 1530 Psychiatrist Consulted: Tiago Collins MD Date Disposition Established: 10/28/17 Time Disposition Established: 1600 Plan for Disposition - Modality: Outpatient Facility: Patient to Arrange Rationale for Disposition: Pt presented to ED for panic attacks. Pt denies SI/HI/AH/VH. Pt is request outpatient for therapy and psychiarist. Pt is employed and goal directed. Pt wants panic attacks to end in order to resume her daily functioning. Referrals Arlette LIGHT,Momo (PCP/Family)
[2017-10-28 15:49] VITALS: BP 124/57
[2017-11-19] MEDS ORDERED: ZOFRAN ODT4 M1 SL (10:27)
[2017-11-19] MEDS ORDERED: NEURONTIN300 M1 PO (13:26)
== END 2017-10-28 15:56 ==
LOC: ERH 10:14
PROVIDERS: Emergency Medicine
DX: F41.9 Anxiety disorder, unspecified (principal)
CPT/HCPCS: 80307; 96372; G0463; G0480; J2550

== ENCOUNTER 2017-11-19 11:58 | Emergency (ER) | payer OTHER ==
[~2017-11-19] VITALS: Ht 167.6 cm; Wt 77.1 kg
[~2017-11-19 11:58] MED LIST changes: +MIRTAZAPINE15 M2 PO; +ZOLOFT100 M1 PO
--- NOTE | 2017-11-19 12:02 | ED PSYCHIATRIC COMPLAINT ---
History of Present Illness General Chief Complaint: Psychiatric Related Complaint Stated Complaint: +SI Source: patient, family, old records, EMS Exam Limitations: no limitations Allergies Coded Allergies: No Known Allergies (10/13/16) Reconcile Medications Gabapentin 100 MG CAPSULE 1 CAP PO TID MENTAL HEALTH (Reported) Sertraline HCl 25 MG TABLET 1 TAB PO DAILY MENTAL HEALTH (Reported) Sertraline HCl 100 MG TABLET 1 TAB PO DAILY MENTAL HEALTH (Reported) Trazodone HCl 50 MG TABLET 1 TAB PO QPM SLEEP (Reported) Triage Nurses Notes Reviewed? yes HPI: Patient was seen here earlier for a severe anxiety attack. Patient was discharged to go follow-up with her psychiatric [employer]. When she got there she told him that she wanted to do anything to it and these constant anxiety attacks. He became concerned that she was suicidal so he called the police and the ambulance and they brought her in for evaluation. Patient denies any suicidal ideations to stating that she wants these things and she is willing to do anything to cause him to stop. Patient denies any homicidal ideations. (Shun LIGHT,Aiden Gaitan) Vital Signs & Intake/Output Vital Signs & Intake/Output Vital Signs Date Time Temp Pulse Resp B/P B/P Pulse O2 O2 Flow FiO2 Mean Ox Delivery Rate 11/19 1758 98.1 83 18 116/68 98 Room Air 11/19 1559 97.8 70 20 137/76 100 Room Air 11/19 1205 98.0 91 18 152/97 98 Room Air ED Intake and Output 11/20 0000 11/19 1200 Intake Total 0 Output Total Balance 0 Intake, Oral 0 Patient 170 lb Weight Weight Reported by Patient Measurement Method (Tino Garcia MD) Past History Travel History Traveled to [place] past 21 day No Medical History Any Pertinent Medical History? 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 No (Shun LIGHT,Aiden Gaitan) Review of Systems Review of Systems Constitutional: Reports: no symptoms. EENTM: Reports: no symptoms. Respiratory: Reports: no symptoms. Cardiovascular: Reports: see HPI, chest pain. GI: Reports: see HPI, nausea. Genitourinary: Reports: no symptoms. Musculoskeletal: Reports: no symptoms. Skin: Reports: no symptoms. Neurological/Psychological: Reports: see HPI, anxiety. Hematologic/Endocrine: Reports: no symptoms. Immunologic/Allergic: Reports: no symptoms. All Other Systems: Reviewed and Negative (Shun LIGHT,Aiden Gaitan) Physical Exam Physical Exam General Appearance: well developed/nourished, alert, awake, anxious, moderate distress Head: atraumatic Eyes: Bilateral: PERRL, EOMI. Ears, Nose, Throat: normal pharynx, normal ENT inspection, hearing grossly normal Neck: normal inspection, supple Respiratory: normal breath sounds Cardiovascular: regular rate/rhythm Gastrointestinal: soft, non-tender Extremities: normal range of motion Neurological/Psychiatric: no motor/sensory deficits, awake, alert, anxious, oriented x 3 Appearance/Memory/Insight: appropriate appearance, appropriate insight Behavoir/Eye Contact/Speech: cooperative, normal speech, good eye contact Thoughts/Hallucinations: normal thought pattern, no apparent hallucination Skin: intact, normal color, warm/dry SAD PERSONS Done? CRISIS CONSULT OBATINED (Shun LIGHT,Aiden Gaitan) Progress Differential Diagnosis: drug intoxication, drug overdose, drug withdrawal, electrolyte abnormality Hand-Off Endorsed To: Tino Garcia MD Endorsed Time: 1500 Pending: consult (Shun LIGHT,Aiden Gaitan) Plan of Care: Orders Procedure Date/time Status Continuous Observation Monitor 11/19 120 Active URINE DRUGS OF ABUSE 11/19 120 Complete HUMAN BETA HCG SCREEN 11/19 1202 Complete ETHANOL 11/19 1202 Complete COMPREHENSIVE METABOLIC PANEL 11/19 1202 Complete CBC WITHOUT DIFFERENTIAL 11/19 120 Complete ED CRISIS PSYCH CONSULT 11/19 120 Active Laboratory Tests 11/19/17 1335: Anion Gap 14, Estimated GFR > 60, BUN/Creatinine Ratio 15.7, Glucose 128 H, Calcium 10.2, Total Bilirubin 0.5, AST 22, ALT 35, Alkaline Phosphatase 75, Total Protein 7.9, Albumin 5.2 H, Globulin 2.7, Albumin/Globulin Ratio 1.9, Total Beta HCG NEGATIVE, CBC w Diff MAN DIFF ORDERED, RBC 4.81, MCV 87.4, MCH 29.3, MCHC 33.5, RDW 13.8, MPV 9.1, Gran % 87.3 H, Lymphocytes % 10.0 L, Monocytes % 2.7, Eosinophils % 0, Basophils % 0, Absolute Granulocytes 8.4 H, Absolute Lymphocytes 1.0 L, Absolute Monocytes 0.3, Absolute Eosinophils 0, Absolute Basophils 0, Platelet Estimate VERIFIED BY SMEAR, Normocytic RBCs VERIFIED, Normochromic RBCs VERIFIED, Serum Alcohol < 10.0 11/19/17 1246: Urine Opiates Screen < 100, Methadone Screen < 40, Barbiturate Screen < 60, Ur Phencyclidine Scrn < 6.00, Amphetamines Screen < 100, U Benzodiazepines Scrn 106 , Urine Cocaine Screen < 50, Urine Cannabis Screen > 80.00 H Comments: Cleared by psychiatry for discharge (Jose LIGHT,Tino) Departure Departure Condition: Stable Clinical Impression Primary Impression: Anxiety Secondary Impressions: Suicidal ideation Referrals: Momo Chong MD (PCP/Family) Departure Forms: Customer Survey General Discharge Information (Shun LIGHT,Aiden Gaitan) Departure Time of Disposition: 1757 Disposition: HOME OR SELF CARE (Tino Garcia MD)
[2017-11-19] MEDS ORDERED: GABAPENTIN100 M2 PO (13:26)
[2017-11-19] MEDS ORDERED: SERTRALINE HCL25 MG PO (13:26)
[2017-11-19] MEDS ORDERED: TRAZODONE HCL50 M1 PO (13:26)
[2017-11-19] MEDS ORDERED: SERTRALINE HCL100 MG PO (13:26)
[2017-11-19 13:46] LABS: ABSOLUTE BASOPHIL COUNT 0 /CUMM (0.0-0.2); ABSOLUTE EOSINOPHIL COUNT 0 /CUMM (0.0-0.7); ABSOLUTE GRANULOCYTE CT 8.4 /CUMM (1.4-6.5); ABSOLUTE MONOCYTE COUNT 0.3 /CUMM (0.10-0.60); BASOPHIL % 0 % (0.0-2.0); EOSINOPHIL % 0 % (0-5); GRANULOCYTE % 87.3 % (42.2-75.2); MEAN CORPUSCULAR HGB 29.3 PG (27.0-31.0); MEAN CORPUSCULAR HGB CONC 33.5 G/DL (33.0-37.0); MEAN CORPUSCULAR VOLUME 87.4 FL (81.0-99.0); MEAN PLATELET VOLUME 9.1 FL (7.4-10.4); PLATELET COUNT 281 /CUMM (130-400); RBC DISTRIBUTION WIDTH 13.8 % (11.5-14.5); RED BLOOD CELL CT 4.81 /CUMM (4.20-5.40); WHITE BLOOD CELL COUNT 9.7 /CUMM (4.8-10.8)
--- NOTE | 2017-11-19 14:32 | ED PSYCH CRISIS CONSULTATION ---
Crisis Consult Basic Assessment Date of Consult: 11/19/17 Responsible Person/Accompanied By: self/biba Insurance Authorization: Insurance #1: Insurance name: NATALIA CASAS Phone number: Policy number: [id number] Group number: Authorization number: ED Provider: Patient's ED Provider: Shun LIGHT,Aiden Gaitan Primary Care Physician: Patient's PCP: Momo Chong MD PCP's Current Psychiatrist: Leo Mercedes [employer] [phone] Chief Complaint: Psychiatric Related Complaint Patient's Quote: I'm having anxiety Present Illness: Pt is a 22 yo female biba to [facility] from [facility] this afternoon due to severe anxiety and possible SI. This is pt 2nd visit to [facility] today. Pt was seen earlier this morning for anxiety and medicated with Ativan and discharged to attend her appt with psychiatric [employer]. During [employer] visit pt continuing to express having a panic attack and expressed SI as an option to get rid of the pain. Pt reports no hx of suicide attempts or self harm. Pt has had one inpatient psychiatric admission in Jul 2016 at [facility] for severe anxiety /panic and was a IOP pt for 3 weeks during summer 2016. Pt has recently begun outpatient tx at [facility] and [facility]. Pt reports daily panic attacks past 5 days and experiences stomach and chest pain and diahrea. Pt unable to identify any specific recent stressors that may contribute to symptoms. Pt denies etoh use. pt reports daily marijuana and no other substances. Pt denies SI/HI/AH/VH. Pt reports living with her bf and they have a good relationship. Pt reports relationship with mother is positive. Pt states "I just want to feel better". C- SSRS completed. Pt presents as anxious, lethargic (has been medicated with Ativan) and OX3. Case reviewed with Dr Bhatia. Recommendation for pt to begin taking Klopin as ordered by her [employer] and follow up with [facility] as scheduled. Plan reviewed with pt and family (mother/bf). All in agreement with plan and report pt is not a risk to self harm. Crisis recommended pt return to or [facility] ED if symptoms return. Patient's Address: [address] [place] [address] Other Who Do You Live With? Significant Other Family/Informants Interviewed: collateral provided by pt mother Kirti . She reports that pt past 5 days has been having bad panic attacks. She thinks this is due to pt increasing zoloft to 125mg. . She does not think pt is at risk to harm self and is comfortable with pt d/c home if cleared. Allergies - Coded Allergies: No Known Allergies (10/13/16) Current Medications - Scheduled Medications Gabapentin 100 MG CAPSULE 1 CAP PO TID MENTAL HEALTH #90 (Reported) Entered as Reported by Guzman Orona on 11/19/17 1326 Sertraline HCl 25 MG TABLET 1 TAB PO DAILY MENTAL HEALTH #30 (Reported) Entered as Reported by Guzman Orona on 11/19/17 1326 Sertraline HCl 100 MG TABLET 1 TAB PO DAILY MENTAL HEALTH #30 (Reported) Entered as Reported by Guzman Orona on 11/19/17 1326 Trazodone HCl 50 MG TABLET 1 TAB PO QPM SLEEP #30 (Reported) Entered as Reported by Guzman Orona on 11/19/17 1326 Laboratory Results: Laboratory Tests 11/19/17 1335: Anion Gap 14, Estimated GFR > 60, BUN/Creatinine Ratio 15.7, Glucose 128 H, Calcium 10.2, Total Bilirubin 0.5, AST 22, ALT 35, Alkaline Phosphatase 75, Total Protein 7.9, Albumin 5.2 H, Globulin 2.7, Albumin/Globulin Ratio 1.9, Total Beta HCG NEGATIVE, CBC w Diff MAN DIFF ORDERED, RBC 4.81, MCV 87.4, MCH 29.3, MCHC 33.5, RDW 13.8, MPV 9.1, Gran % 87.3 H, Lymphocytes % 10.0 L, Monocytes % 2.7, Eosinophils % 0, Basophils % 0, Absolute Granulocytes 8.4 H, Absolute Lymphocytes 1.0 L, Absolute Monocytes 0.3, Absolute Eosinophils 0, Absolute Basophils 0, Platelet Estimate VERIFIED BY SMEAR, Normocytic RBCs VERIFIED, Normochromic RBCs VERIFIED, Serum Alcohol < 10.0 11/19/17 1246: Urine Opiates Screen < 100, Methadone Screen < 40, Barbiturate Screen < 60, Ur Phencyclidine Scrn < 6.00, Amphetamines Screen < 100, U Benzodiazepines Scrn 106 , Urine Cocaine Screen < 50, Urine Cannabis Screen > 80.00 H Past History Past Medical History Neurological: NONE EENT: NONE Cardiovascular: NONE Respiratory: NONE Gastrointestinal: GERD Hepatic: NONE Renal: NONE Musculoskeletal: NONE Psychiatric: anxiety, substance abuse Endocrine: NONE Blood Disorders: NONE Cancer(s): NONE 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 Past Surgical History Surgical History: non-contributory Psychosocial History Strengths/Capabilities: Employed Supportive Mom and Boyfriend Physical Limitations (Interventions): none noted Psychiatric Treatment History Psych Treatment Psychiatric Treatment Yes Inpatient Treatment Yes Outpatient Treatment Yes Location of Treatment [facility]; [facility]; [facility] Reason for Treatment severe anxiety Dates of Treatment Inpatient Jul 2016; IOP summer 2016; Recently started [facility] Response to Treatment pt reports recent increase panic attacks past week. Diagnosis by History: anxiety panic Substance Use/Abuse History Drug Use/Abuse Substances Used/Abused Yes Substance Used/Abused Marijuana Last Used yesterday How often daily Substance Abuse Treatment Substance Abuse Treatment Past Substance Abuse [place] No Inpatient Treatment No Outpatient Treatment No Comments: pt denies etoh; reports daily marijuana use. Current Mental Status Mental Status Orientation: Person, Place, Situation Affect: Anxious, Hopeless Speech: WNL Neuro-vegetative: Concentration Poor, Helpless, Sleep Disturbance Appearance Appearance- Dress/Hygiene: hospital scrubs; lethargic; anxious; difficulty concentrating due stomach and chest. Behaviors Thought Process: WNL Thought Content: WNL Memory: WNL Insight: Fair SI/HI Risk Assessment Past Suicidal Ideation/Attempts No Current Suicidal Ideation/Att No Past Homicidal Ideation/Att: No Current Homicidal Ideation/Attempts No Degree of Intent: None Risk Factors: age (under 24/over 65), high anxiety/distress, SA/MH hospitalized, substance abuse Lethality Ratin PTSD Checklist PTSD Done? patient declined ED Management Sitter: Yes Restraints: No DSM5/PS Stressors/Medical Prob Diagnosis' (DSM 5, Stressors, Medical): Unspecified Anxiety d/o F41.9 Panic d/o F41.0 Current GAF: 35 Comments: Pt reporting severe anxiety symptoms since 6am. Pt 2nd time in [facility] today. Pt stated she would drive into [employer] [place] to make pain go away at [facility] outpatient appt this morning. Pt currently denies SI. Mother reports confidence that pt would never intentionally harm herself. Departure Disposition Psych Medical Clearance Date: 11/19/17 Medically Cleared at: 1345 Time Started: 1345 Time Ended: 1430 Psychiatrist Consulted: Brigette Bhatia MD Date Disposition Established: 11/19/17 Time Disposition Established: 1700 Plan for Disposition - Modality: Outpatient Facility: [facility] Follow-up Appt Date: 12/03/17 Contact: Leo Mercedes APRN Rationale for Disposition: Pt cleared for discharge. Pt denies SI. Reports decreased anxiety symptoms. Mother and bf report thinking pt is not at risk to harm self and feel she is safe to discharge. Provider Leo Mercedes APRN at [facility] has called a prescription of Klonopin for pt to cigar packer and picker at pharmacy this evening. Pt next appt at [facility] is December 03. Referrals Momo Chong MD (PCP/Family)
[2017-11-19 17:58] VITALS: BP 116/68
== END 2017-11-19 18:14 ==
LOC: ERH 11:58
PROVIDERS: Emergency Medicine
DX: F41.9 Anxiety disorder, unspecified (principal); R45.851 Suicidal ideations
CPT/HCPCS: 80307; G0463; G0480

== ENCOUNTER 2018-01-19 12:57 | Inpatient (IN) | payer OTHER ==
[~2018-01-19] VITALS: Ht 170.2 cm; Wt 89.0 kg
[~2018-01-19 12:57] MED LIST changes: +NEURONTIN300 M1 PO; +SERTRALINE HCL100 MG PO; +SERTRALINE HCL25 MG PO; +TRAZODONE HCL50 M1 PO
--- NOTE | 2018-01-19 13:00 | ED PSYCHIATRIC COMPLAINT ---
History of Present Illness General Chief Complaint: Psychiatric Related Complaint Stated Complaint: ?SI Source: patient, old records Exam Limitations: no limitations Vital Signs & Intake/Output Vital Signs & Intake/Output Vital Signs Date Time Temp Pulse Resp B/P B/P Pulse O2 O2 Flow FiO2 Mean Ox Delivery Rate 01/22 819 96.4 89 139/78 01/21 2015 97.4 78 138/87 Allergies Coded Allergies: No Known Allergies (10/13/16) Triage Nurses Notes Reviewed? yes Onset: Gradual Duration: getting worse Timing: recent history Severity: severe Severity Numbers: 10 HPI: Patient is a 22-year-old female with a past medical history of anxiety and suicidal ideation who presents brought in by ambulance for concerns of calling IOP which she currently is participating in where she verbally STATED TO THEM OF thoughts of harming herself, patient states that she's had persistent suicidal ideation for the past few days denies any specific plan denies any homicidal ideation states that the Lexapro that being prescribed by [facility] has increased, patient denies any illness. Denies any chance of denies any illicit drug use alcohol or tobacco use. Is compliant with medications. With her private residence with her brother. Denies any auditory or visual hallucinations Patient also is complaining of worsening anxiety denies any specific stressors in her life (Angel Sibley) Reconcile Medications Clonazepam 0.5 MG TABLET 3 TAB PO AT BEDTIME anxiety Escitalopram Oxalate (Lexapro) 20 MG TABLET 1 TAB PO DAILY MENTAL HEALTH Gabapentin (Neurontin) 300 MG CAPSULE 3 CAP PO TID ANXIETY Sucralfate (Carafate) 1 GRAM TABLET 1,000 MG PO 4 TIMES/DAY GI Trazodone HCl 50 MG TABLET 1 TAB PO QPM SLEEP (Mei LIGHT,[facility]) Past History Medical History Any Pertinent Medical History? 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 No (Angel Sibley) Review of Systems Review of Systems Constitutional: Reports: no symptoms. EENTM: Reports: no symptoms. Respiratory: Reports: no symptoms. Cardiovascular: Reports: no symptoms. GI: Reports: no symptoms. Genitourinary: Reports: no symptoms. Musculoskeletal: Reports: no symptoms. Skin: Reports: no symptoms. Neurological/Psychological: Reports: see HPI, anxiety. Hematologic/Endocrine: Reports: no symptoms. Immunologic/Allergic: Reports: no symptoms. All Other Systems: Reviewed and Negative (Angel Sibley) Physical Exam Physical Exam General Appearance: no apparent distress, alert, comfortable Head: atraumatic Eyes: Bilateral: normal appearance, PERRL, EOMI. Ears, Nose, Throat: normal pharynx, normal ENT inspection Neck: normal inspection Respiratory: normal breath sounds, chest non-tender Cardiovascular: regular rate/rhythm Gastrointestinal: normal bowel sounds, non-tender Neurological/Psychiatric: awake, alert, calm, flat Appearance/Memory/Insight: appropriate appearance, appropriate insight, denies illness Behavoir/Eye Contact/Speech: cooperative, normal speech, good eye contact Thoughts/Hallucinations: normal thought pattern, no apparent hallucination Skin: intact, normal color SAD PERSONS SAD PERSONS Response Value Depression/Hopelessness? yes 2 Previous Attempts/Psych Care yes 1 Single//? yes 1 Stated Future Intent? yes 2 Total 6 SAD PERSONS Done? yes (Angel Sibley) Progress Differential Diagnosis: drug intoxication, drug overdose, drug withdrawal, electrolyte abnormality, encephalitis, hypoglycemia, hypothyroidism, IC hem/mass /tumor, meningitis Plan of Care: Orders Procedure Date/time Status Discharge from inpatient psych 01/22 UNK Active SUB HSP (15 MIN) 01/21 UNK Complete Patient upon initial presentation denies any illness, patient was medically cleared in which it is identified to me by crisis management in which patient will be admitted to Inpatient Psychiatry for concerns of depression and anxiety and suicide ideation (Angel Sibley) Departure Departure Disposition: STILL A PATIENT Condition: Stable Clinical Impression Primary Impression: Depression Referrals: Momo Chong MD (PCP/Family) Departure Forms: Customer Survey General Discharge Information Psych Admission Note Psychiatric Admission: I have seen and evaluated DOROTHEA SHANNON. I have also reviewed all the pertinent lab results and diagnostic results. DOROTHEA SHANNON will be admitted to our inpatient Psychiatric unit for treatment and care. (Angel Sibley) Departure Prescriptions: Current Visit Scripts Sucralfate (Carafate) 1,000 MG PO 4 TIMES/DAY #60 TAB Escitalopram Oxalate (Lexapro) 1 TAB PO DAILY #15 TAB Trazodone HCl 1 TAB PO QPM #30 TAB Clonazepam 3 TAB PO AT BEDTIME #45 TAB Gabapentin (Neurontin) 3 CAP PO TID #90 CAP PA/BEEF LUGGER Co-Sign Statement Statement: ED Attending supervision documentation- [] I saw and evaluated the patient. I have also reviewed all the pertinent lab results and diagnostic results. I agree with the findings and the plan of care as documented in the PA's/BEEF LUGGER's documentation. [x] I have reviewed the ED Record and agree with the PA's/BEEF LUGGER's documentation. [] Additions or exceptions (if any) to the PAs/BEEF LUGGER's note and plan are summarized below: [] (Mei LIGHT,[facility]) Critical Care Note Critical Care Note Critical Care Time: 30-74 min (Angel Sibley) (Haldol) Lorazepam 2 MG Q6P PRN 01/19 1545 UNVr (Ativan) Magnesium Hydroxide 30 ML AT BEDTIME PRN 01/19 1545 UNVr (Milk Of Magnesia) Ondansetron HCl 4 MG Q12P PRN 01/19 1545 UNVr (Zofran) Trazodone HCl 75 MG AT BEDTIME NEED.. 01/19 1545 UNVr (Desyrel) Laboratory Tests 01/19/18 1506: CBC w Diff NO MAN DIFF REQ, RBC 4.67, MCV 88.3, MCH 29.2, MCHC 33.0, RDW 14.4, MPV 9.0, Gran % 68.8, Lymphocytes % 25.5, Monocytes % 5.4, Eosinophils % 0, Basophils % 0.3, Absolute Granulocytes 5.3, Absolute Lymphocytes 2.0, Absolute Monocytes 0.4, Absolute Eosinophils 0, Absolute Basophils 0 01/19/18 1340: Anion Gap 14, Estimated GFR > 60, BUN/Creatinine Ratio 17.1, Glucose 93, Calcium 9.6, Total Bilirubin 0.5, AST 21, ALT 35, Alkaline Phosphatase 61, Total Protein 6.9, Albumin 4.4, Globulin 2.5, Albumin/Globulin Ratio 1.8, TSH &T3 &Free T4 Intrp Pending, Total Beta HCG NEGATIVE, Serum Alcohol < 10.0 01/19/18 1324: Urine Opiates Screen < 100, Methadone Screen < 40, Barbiturate Screen < 60, Ur Phencyclidine Scrn < 6.00, Amphetamines Screen < 100, U Benzodiazepines Scrn 627 H, Urine Cocaine Screen < 50, Urine Cannabis Screen > 80.00 H Patient upon initial presentation denies any illness, patient was medically cleared in which it is identified to me by crisis management in which patient will be admitted to Inpatient Psychiatry for concerns of depression and anxiety and suicide ideation Departure Departure Disposition: STILL A PATIENT Condition: Stable Clinical Impression Primary Impression: Depression Referrals: Momo Chong MD (PCP/Family) Departure Forms: Customer Survey General Discharge Information Psych Admission Note Psychiatric Admission: I have seen and evaluated DOROTHEA SHANNON. I have also reviewed all the pertinent lab results and diagnostic results. DOROTHEA SHANNON will be admitted to our inpatient Psychiatric unit for treatment and care. Critical Care Note Critical Care Note Critical Care Time: 30-74 min
[2018-01-19] MEDS ORDERED: LEXAPRO20 M1 PO (14:43)
--- NOTE | 2018-01-19 15:10 | ED PSYCH CRISIS CONSULTATION ---
Crisis Consult Basic Assessment Date of Consult: 01/19/18 Responsible Person/Accompanied By: self Insurance Authorization: Insurance #1: Insurance name: NATALIA CASAS Phone number: Policy number: [id number] Group number: DOROTHEA SHANNON [id number] 1995 DOROTHEA SHANNON [id number] Authorization # Client Authorization # Type of Request [id number] INITIAL Date of Admission/ Start of Services From - To Submission Date 01/19/2018 01/19/2018 - 01/21/2018 01/19/2018 Level of Service Type of Service Level of Care Type of Care INPATIENT/[facility] MENTAL HEALTH INPATIENT INPATIENT HOSPITAL - INPATIENT HOSPITAL Authorization number: ED Provider: Patient's ED Provider: Angel Sibley Primary Care Physician: Patient's PCP: Momo Chong MD PCP's Current Psychiatrist: Brigette Bhatia MD ([facility]) Chief Complaint: Psychiatric Related Complaint Patient's Quote: I have panic attacks Present Illness: Pt is a 22 y.o. S/W/F who was sent to the ED from [facility] (unscheduled individual session) for a crisis assessment with consideration for admit due to Gravely disabled/ SI / distress due to severe prolonged anxiety and panic. Pt's mother reporting severity as well. Mother reporting to [facility] that pt made a statement about driving off the road. "Mommy please help me." Pt reporting poor appetite and sleep. Pt with recent increase in lexapro 10 to 20 to help with sx but may be contributing to SI. Pt was scheduled for [facility] yesterday, but missed it due to being at [facility] over night with anxiety and "throwing up blood". Cannabinoid Hyperemesis syndrome. Today, pt called [facility] and asked for help due to severe worsening of panic sx. Below is [facility] staff Zaira Chahal LMSW note. "I have been having a panic attack since Thursday morning and I cannot calm down." Patient explains she was in [place] over the weekend with her mom and moms boyfriend and began feeling very anxious and panicked on Thursday morning. 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 She reports "my mom was so mad at me and she recorded me crying and screaming on the way home and I didn't like that she recorded me." Patient went to [place] [facility] and was admitted overnight and released yesterday 01/18/18. Patient reports "they gave me ativan to help me calm down." Patient states "I just can't live like this anymore and I don't know what to do." She reports "I have terrible stomach pain that is from stress and I was throwing up blood when I went to [place]." Patient stated over and over "I'm in so much pain" while holding her stomach. Patient reports last use of cannabis as 01/14/18. Pt presented to [facility] neat and casually dressed. Patient appeared uncomfortable and was rocking back and forth and tapping her feet. She presented with an anxious and tearful mood and reports anxiety 10/10 with 10 being severe. Patient reports SI with no intent or plan. In the ED, pt is upset/tearful, not pleased to be sent her to ED. She continues to report Suicidal thoughts (without a plan or intent) and panic she is not sure she can manage it at home. She does not find her mother's interactions supportive. She is agreeable to med changes. She denies HI/AH/Vh and there are no overt signs and sx to psychosis. She continuously tearful and reports feeling safe in ED. She is feeling overwhelmed with the idea of coming into the hospital. She was educated about the inpt and signing in. Sw received call from pt's mother who is overwhelmed by pt's needs and severity of sx. She would like pt to get help and is worried about pt's safety as she has expressed to this sw and [facility] sw. Pt reports using cannabis about every other day. She denies ETOH and other substances. She reports several cousins with substance abuse problems. She identifies a trigger to her anxiety /panic as the loss of a cousin and friend to OD ayear ago. utox positive for cannabis and Benzo (given at [place]). Pt is medically cleared. Pt discussed with MD Dennis and tx team. Plan for Pt is to be admitted to CPS. Pt's mother to come to ED after she closes their restaurant and instruct pt on whether she should sign in. Who Do You Live With? Significant Other Family/Informants Interviewed: pt unable to participate Allergies - Coded Allergies: No Known Allergies (10/13/16) Current Medications - Scheduled Medications Escitalopram Oxalate (Lexapro) 20 MG TABLET 1 TAB PO DAILY MENTAL HEALTH #15 (Reported) Entered as Reported by Guzman Orona on 01/19/18 1443 Gabapentin (Neurontin) 300 MG CAPSULE 1 CAP PO TID MENTAL HEALTH (Reported) Entered as Reported by Guzman Orona on 11/19/17 1326 Sertraline HCl 25 MG TABLET 1 TAB PO DAILY MENTAL HEALTH #30 (Reported) Entered as Reported by Guzman Orona on 11/19/17 1326 Sertraline HCl 100 MG TABLET 1 TAB PO DAILY MENTAL HEALTH #30 (Reported) Entered as Reported by Guzman Orona on 11/19/17 1326 Trazodone HCl 50 MG TABLET 1 TAB PO QPM SLEEP #30 (Reported) Entered as Reported by Guzman Orona on 11/19/17 1326 Past History Past Medical History Neurological: NONE EENT: NONE Cardiovascular: NONE Respiratory: NONE Gastrointestinal: GERD Hepatic: NONE Renal: NONE Musculoskeletal: NONE Psychiatric: anxiety, substance abuse Endocrine: NONE Blood Disorders: NONE Cancer(s): NONE 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 STARTED [facility] AND MISSED THURSDAY. 1:1 THERAPIST Response to Treatment MED INCREASED ANXIETY /SI Diagnosis by History: anxiety panic Substance Use/Abuse History Drug Use/Abuse Substances Used/Abused Yes Substance Used/Abused Marijuana First Use FEW YEARS Last Used 01/14/18 How often daily or every other day Substance Abuse Treatment Substance Abuse Treatment Past Substance Abuse [place] No Current Mental Status Mental Status Orientation: Person, Place, Situation Affect: Anxious, Angry, Appropriate (tearful), Sad, Variable Speech: WNL Neuro-vegetative: Appetite Decreased, Concentration Poor, Energy Decreased, Helpless, Sleep Disturbance Appearance Appearance- Dress/Hygiene: hospital clothing Behaviors Thought Process: Irrational (impacted by panic and anxiety ) Thought Content: fearful of next panic /doom Memory: WNL Insight: Fair SI/HI Risk Assessment Past Suicidal Ideation/Attempts Yes (cant take it anymore/ driving) Current Suicidal Ideation/Att Yes (cant take it anymore/ thoughts) Past Homicidal Ideation/Att: No Current Homicidal Ideation/Attempts No Degree of Intent: None (was driving while thoughts), Thoughts/No Intent (was driving and thinknig about) Danger To: Self Gravely Disabled: Poor Judgment (when having panic severe ) Risk Factors: age (under 24/over 65), high anxiety/distress, substance abuse (mo frustrated/ angry not impro) Lethality Ratin PTSD Checklist PTSD Score: PTSD Score: Response Value Disturbing memories,thoughts,images of stressful experience? Not at all 1 Disturbing dreams of stressful experience from past? Not at all 1 Suddenly acting/feeling as if reliving stressful experience? Not at all 1 Total 3 ED Management Sitter: No Restraints: No DSM5/PS Stressors/Medical Prob Diagnosis' (DSM 5, Stressors, Medical): F41.0 panic disorder Current GAF: 24 Comments: Pt is voluntarty to CPS. Mother was encouraged to be postive about tx not angry and negative like she presented in ED. Pt denies AH/VH/HI. Pt is tearful. Departure Disposition Psych Medical Clearance Date: 01/19/18 Psychiatrist Consulted: Tiago Collins MD Date Disposition Established: 01/19/18 Time Disposition Established: 0300 Rationale for Disposition: Pt with suicidal ideation, severe panic and anxiety, and distressed. Not able to make a clear safety plan. Days of severe sx without releif and verbalizing suicidal thougth which is not usual. no overt signs and sx of psychosis/Vh/AH / HI. no safety plan voluntary admit to cps Type of IP Admission: Voluntary Referrals Arlette LIGHT,[facility] (PCP/Family)
[2018-01-19 15:13] LABS: ABSOLUTE BASOPHIL COUNT 0 /CUMM (0.0-0.2); ABSOLUTE EOSINOPHIL COUNT 0 /CUMM (0.0-0.7); ABSOLUTE GRANULOCYTE CT 5.3 /CUMM (1.4-6.5); ABSOLUTE MONOCYTE COUNT 0.4 /CUMM (0.10-0.60); BASOPHIL % 0.3 % (0.0-2.0); EOSINOPHIL % 0 % (0-5); GRANULOCYTE % 68.8 % (42.2-75.2); HEMATOCRIT 41.2 % (37-47); MEAN CORPUSCULAR HGB 29.2 PG (27.0-31.0); MEAN CORPUSCULAR VOLUME 88.3 FL (81.0-99.0); PLATELET COUNT 235 /CUMM (130-400); RBC DISTRIBUTION WIDTH 14.4 % (11.5-14.5); RED BLOOD CELL CT 4.67 /CUMM (4.20-5.40); WHITE BLOOD CELL COUNT 7.7 /CUMM (4.8-10.8)
--- NOTE | 2018-01-19 17:16 | IP CRISIS DIAG ASSESS PSYCH ---
Diagnostic Assessment Basic Assessment Insurance Authorization: Insurance #1: Insurance name: NATALIA CASAS Phone number: Policy number: [id number] Group number: Authorization number: Primary Care Physician: Patient's PCP: Momo Chong MD PCP's Patient's Quote: I have panic attacks Present Illness: Pt is a 22 y.o. S/W/F who was sent to the ED from [facility] (unscheduled individual session) for a crisis assessment with consideration for admit due to Gravely disabled/ SI / distress due to severe prolonged anxiety and panic. Pt's mother reporting severity as well. Mother reporting to [facility] that pt made a statement about driving off the road. "Mommy please help me." Pt reporting poor appetite and sleep. Pt with recent increase in lexapro 10 to 20 to help with sx but may be contributing to SI. Pt was scheduled for IOP yesterday, but missed it due to being at [facility] over night with anxiety and "throwing up blood". Cannabinoid Hyperemesis syndrome. Today, pt called [facility] and asked for help due to severe worsening of panic sx. Below is [facility] staff Zaira Chahal LMSW note. "I have been having a panic attack since Thursday morning and I cannot calm down." Patient explains she was in [place] over the weekend with her mom and moms boyfriend and began feeling very anxious and panicked on Thursday morning. She decided to leave to drive back to [place] , but on the way her panic worsened so badly she had to puller through on the side of the road for several hours until her mother could come and pick her up. She reports "my mom was so mad at me and she recorded me crying and screaming on the way home and I didn't like that she recorded me." Patient went to [place] [facility] and was admitted overnight and released yesterday 01/18/18. Patient reports "they gave me ativan to help me calm down." Patient states "I just can't live like this anymore and I don't know what to do." She reports "I have terrible stomach pain that is from stress and I was throwing up blood when I went to [place]." Patient stated over and over "I'm in so much pain" while holding her stomach. Patient reports last use of cannabis as 7/19/18. Pt presented to [facility] neat and casually dressed. Patient appeared uncomfortable and was rocking back and forth and tapping her feet. She presented with an anxious and tearful mood and reports anxiety 10/10 with 10 being severe. Patient reports SI with no intent or plan. In the ED, pt is upset/tearful, not pleased to be sent her to ED. She continues to report Suicidal thoughts (without a plan or intent) and panic she is not sure she can manage it at home. She does not find her mother's interactions supportive. She is agreeable to med changes. She denies HI/AH/Vh and there are no overt signs and sx to psychosis. She continuously tearful and reports feeling safe in ED. She is feeling overwhelmed with the idea of coming into the hospital. She was educated about the inpt and signing in. Sw received call from pt's mother who is overwhelmed by pt's needs and severity of sx. She would like pt to get help and is worried about pt's safety as she has expressed to this sw and [facility] sw. Pt reports using cannabis about every other day. She denies ETOH and other substances. She reports several cousins with substance abuse problems. She identifies a trigger to her anxiety /panic as the loss of a cousin and friend to [place] millan ago. utox positive for cannabis and Benzo (given at [facility]). Pt is medically cleared. Pt discussed with MD Dennis and tx team. Plan for Pt is to be admitted to CPS. Pt's mother to come to ED after she closes their restaurant and instruct pt on whether she should sign in. Patient's Address: [address] [place] [address] Other Who Do You Live With? Mother Feel Safe Where You Live? Yes Feel Safe in Your Relationship Yes Marital Status: single Do You Have Children? No Primary Language? Palestinian Language(s) Spoken At Home: Palestinian Family/Informants Interviewed: pt unable to participate, Spoke with Mom Allergies - Coded Allergies: No Known Allergies (10/13/16) Current Medications - Scheduled Medications Escitalopram Oxalate (Lexapro) 20 MG TABLET 1 TAB PO DAILY MENTAL HEALTH #15 (Reported) Entered as Reported by Guzman Orona on 01/19/18 1443 Gabapentin (Neurontin) 300 MG CAPSULE 1 CAP PO TID MENTAL HEALTH (Reported) Entered as Reported by Guzman Orona on 11/19/17 1326 Sertraline HCl 25 MG TABLET 1 TAB PO DAILY MENTAL HEALTH #30 (Reported) Entered as Reported by Guzman Orona on 11/19/17 1326 Sertraline HCl 100 MG TABLET 1 TAB PO DAILY MENTAL HEALTH #30 (Reported) Entered as Reported by Guzman Orona on 11/19/17 1326 Trazodone HCl 50 MG TABLET 1 TAB PO QPM SLEEP #30 (Reported) Entered as Reported by Guzman Orona on 11/19/17 1326 Consequences of Psych Med Use: having adverse effects Lab Results: Laboratory Tests 01/19/18 1506: CBC w Diff NO MAN DIFF REQ, RBC 4.67, MCV 88.3, MCH 29.2, MCHC 33.0, RDW 14.4, MPV 9.0, Gran % 68.8, Lymphocytes % 25.5, Monocytes % 5.4, Eosinophils % 0, Basophils % 0.3, Absolute Granulocytes 5.3, Absolute Lymphocytes 2.0, Absolute Monocytes 0.4, Absolute Eosinophils 0, Absolute Basophils 0 01/19/18 1340: Anion Gap 14, Estimated GFR > 60, BUN/Creatinine Ratio 17.1, Glucose 93, Calcium 9.6, Total Bilirubin 0.5, AST 21, ALT 35, Alkaline Phosphatase 61, Total Protein 6.9, Albumin 4.4, Globulin 2.5, Albumin/Globulin Ratio 1.8, TSH &T3 &Free T4 Intrp Pending, Total Beta HCG NEGATIVE, Serum Alcohol < 10.0 01/19/18 1324: Urine Opiates Screen < 100, Methadone Screen < 40, Barbiturate Screen < 60, Ur Phencyclidine Scrn < 6.00, Amphetamines Screen < 100, U Benzodiazepines Scrn 627 H, Urine Cocaine Screen < 50, Urine Cannabis Screen > 80.00 H Toxicology Screen Completed? Yes Results: positive Symptoms of Use: makes her nausea Past History Past Surgical History Surgical History non-contributory Abuse/Trauma History Trauma History/Current Trauma: Denies Legal History Current Legal Status: none Psychosocial History Strengths/Capabilities: Employed Supportive Mom and mother's Boyfriend would like to go to college Physical Limitations (Interventions): none noted Psychiatric Treatment History Psych Treatment Psychiatric Treatment Yes Inpatient Treatment No Location of Treatment [facility] Reason for Treatment anxiety and panic Dates of Treatment last summer for 4 weeks IOP. STARTED THU AND MISSED THURSDAY. 1:1 THERAPIST Response to Treatment MED INCREASED ANXIETY /SI Diagnosis by History: anxiety panic Risk Factors: age (under 24/over 65), high anxiety/distress, substance abuse (mo frustrated/ angry not impro) Substance Use/Abuse History Drug Use/Abuse minimum 12mo Hx Substances Used/Abused Yes Substance Used/Abused Marijuana First Use FEW YEARS Last Used 01/14/18 How often daily or every other day Substance Abuse Treatment Substance Abuse Treatment Past Substance Abuse [place] No Sexual History Sexual Orientation Heterosexual Education History Highest Level of Education: high school/GED Preferred Learning Style: experiential Current Mental Status Mental Status Orientation: Person, Place, Situation Affect: Anxious, Angry, Appropriate (tearful), Sad, Variable Speech: WNL Neuro-vegetative: Appetite Decreased, Concentration Poor, Energy Decreased, Helpless, Sleep Disturbance Appearance Appearance- Dress/Hygiene: hospital clothing Behaviors Thought Process: Irrational (impacted by panic and anxiety ) Thought Content: fearful of next panic /doom Memory: WNL Insight: Fair SI/HI Risk Assessment - Minimum 6mo History- Past Suicidal Ideation/Attempts Yes (cant take it anymore/ driving) Current Suicidal Ideation/Att Yes (cant take it anymore/ thoughts) Past Homicidal Ideation/Att: No Current Homicidal Ideation/Attempts No Degree of Intent: None (was driving while thoughts), Thoughts/No Intent (was driving and thinknig about) Danger To: Self Gravely Disabled: Poor Judgment (when having panic severe ) Risk Factors: age (under 24/over 65), high anxiety/distress, substance abuse (mo frustrated/ angry not impro) Lethality Ratin Needs/Init TX Plan/Goals: Med management Safety Inpatient milieu Individual, group and family therapy AUDIT-C Questionnaire: AUDIT-C Questionnaire: Response Value ETOH use in the past year Never 0 # drinks typical/day Doesn't Drink 0 6 or > drinks per occasion Never 0 Total 0 DSM5/PS Stressors/Medical Prob Diagnosis' (DSM 5, Stressors, Medical): F41.0 panic disorder Current GAF: 24 Comments: Pt is voluntarty to CPS. Mother was encouraged to be postive about tx not angry and negative like she presented in ED. Pt denies AH/VH/HI. Pt is tearful.
[2018-01-19 19:12] VITALS: BP 129/70
[2018-01-19 19:41] VITALS: BP 129/70
[2018-01-19] MEDS ORDERED: CARAFATE1 GM/10 M1 PO (20:44)
[2018-01-20 08:05] VITALS: BP 142/68
--- NOTE | 2018-01-20 09:04 | CPS PROVIDER INIT ASMT PSYCH ---
Psychiatric Admission [employer]'s Note Reviewed: Yes Patient Seen and Examined: Yes Identifying Information: The patient is a 22-year-old single white female. Chief Complaint: "I have panic attacks" Reaction to Hospitalization: Patient was admitted voluntarily History of Present Illness Onset of Illness: Per REBECA LewisW's notes of 01/19/2018; "Pt was sent to the ED from [facility] (unscheduled individual session) for a crisis assessment due to passive SI and severe prolonged anxiety and panic. Pt's mother reporting severity as well. Mother reporting to [facility] that pt made a statement about driving off the road. "Mommy please help me." Pt reporting poor appetite and sleep. Pt with recent increase in lexapro 10 to 20 to help with sx but may be contributing to SI. Pt was scheduled for IOP yesterday, but missed it due to being at [facility] over night with anxiety and "throwing up blood". Cannabinoid Hyperemesis syndrome. Circumstances Leading to Admission: see above Problem(s) Justifying Need for Admission: see above Past Psychiatric History Past Diagnosis(es)- if any: Panic disorder Past Precipitating Factors- if any: breakup with boyfriend - Include inpatient and outpatient treatment Treatment History: IOP at -[facility] in 2016 Outpatient: Therapy with Sandy Malin, for anxiety/Depression, September 2016 to October 2016 Outpatient: Therapy with Zabrina Baron Reason: "everything", Dates: May 2016-September 2016 Inpatient: [facility] , Reason: Anxiety/Panic Attacks Dates: 3 days in Jun 2016 History of Suicide Attempts or Gestures Patient denied ever attempting suicide. Substance Abuse History: Alcohol use disorder, cannabis use disorder Allergies: Coded Allergies: No Known Allergies (10/13/16) Home Med List: Lexapro: 10mg, daily Medication Gabapentin 300mg Frequency TID Trazodone: 50mg, once/twice if needed Klonopin 0.5 mg BID if needed - Include any medical condition(s) that may - impact the patient's recovery/remission Past Medical History: emesis Past History Medical History Neurological: NONE EENT: NONE Cardiovascular: NONE Respiratory: NONE Gastrointestinal: GERD Hepatic: NONE Renal: NONE Musculoskeletal: NONE Psychiatric: anxiety, substance abuse Endocrine: NONE Blood Disorders: NONE Cancer(s): NONE HUMAN RESOURCES PARTNER/Reproductive: NONE Isolation History: Standard Surgical History Surgical History: non-contributory Psychiatric Family/Social Hx Family History Psychiatric Illness: Unknown unknown Substance Use: Father - alcoholic, brother - alcohol brother - alcohol, paternal cousin - opioid (oxycodone laced with fentanyl), paternal cousin - substance abuse (unknown), decreased, paternal uncle - substance abuse-decreased Suicides: Unknown Social History Living Situation: In [place] with her brother Significant Relationships (family/friends): Brother, mother Education: High school education Vocation/Occupation: 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 - #1 Recognizing dangerous situations. - #2 Coping Skills. - #3 Basic information about quitting. Status of Tobacco Cessation Counseling: Not Applicable Cessation Med Status Not Applicable Alcohol Screening - ETOH screen POS if BAL >=80 or Audit-C>= M4/F3 Audit-C Score from Diag Assess: 0 Blood Alcohol Level: Laboratory Tests 01/19 1340 Toxicology Serum Alcohol (<10 MG/DL) < 10.0 Alcohol Use Screening Results: Neg per Audit C &/or BAL - If ETOH counseling indicated - the following topics are required. - #1 Express concern about the patient's - drinking at unhealthy levels, include informing - of national norms for moderate drinking: - men <= 14 drinks/week, max 4 drinks/occasion - women <= 7 drinks/week, max 3 drinks/occasion - #2 Providing feedback, including linking alcohol to - negative physical effects (liver injury, hypertension) - negative emotional effects (relationship problems and - depression) - negative occupational consequences (reduced work - performance) - #3 Advising the patient to abstain from alcohol or - to drink below national norms for moderate drinking - (as listed above). Status of ETOH Use Counseling: N/A B/C NO ETOH Use Metabolic Screening - Screen if on a Neuroleptic Medication - Metabolic screening should include: - Blood Pressure, BMI, Glucose or Hgb A1c, & a - Lipid profile from within the past 365 days. Metabolic Screening Not Applicable, patient not on a neuroleptic. Exam and Plan Mental Status Examination Ambulation Status: Steady gait Appearance: Patient was rocking and clutching her stomach Attitude towards examiner: Cooperative Psychomotor activity: Increased psychomotor activity Behavior: No bizarre behaviors Quality of speech: Not pressured/not slurred Affect: Euthymic Mood: Anxious Suicidal Ideation: Denied thinking of suicide Homicidal Ideation: Denied thinking of homicide Hallucinations: Denied hallucinations Paranoid/Delusional Material: Denied feeling paranoid Difficulties with thought organization: Coherent Insight: Limited insight Judgment: Fair judgment Orientation: Alert and oriented to time place and person Cognition: Difficulties with attention and concentration Memory Function: No short-term memory deficits Estimate of intellectual functioning: Average Assets/Strengths Patient Identified Assets/Strengths: A supportive family Impression/Plan Impression and Plan: 22-year-old single white female who was admitted because of severe anxiety. Patient has been struggling with anxiety at least since October 2016 - Include all active medical diagnosis that require tx DSM 5 Diagnosis(es): Unspecified depressive disorder Panic disorder R/o F12.280 Cannabis-induced Anxiety Disorder, with onset of symptoms during withdrawal r/o F31.30 Unspecified Bipolar Disorder F12.20 - Cannabis Use D/O, severe, F12.188 - Cannabinoid Hyperemesis syndrome - Initial Tx Plan for Active Psych & Medical Conditions Treatment Plan: Inpatient psychiatric care with safety checks every 15 minutes Klonopin 1 mg times once now on Klonopin 1 mg at bedtime for today Increase Lexapro to 20 mg daily starting tomorrow morning Increase gabapentin to 600 mg 3 times a day Nursing assessments, biopsychosocial assessment, collateral information, group therapy, milieu therapy, and activities therapy - Factors that would help patient function - in a less restrictive setting. Factors: Patient will be discharge once her anxiety is under better control and if she continues to deny thoughts of suicide over the next 48 hours
--- NOTE | 2018-01-20 14:57 | History & Physical ---
General Information and HPI MD Statement: I have seen and personally examined DOROTHEA SHANNON and documented this H&P. The patient is a 22 year old F who presented with a patient stated chief complaint of "I have panic attacks". Source of Information: patient, family Exam Limitations: unable to give history History of Present Illness: 22-year-old white female brought in by ambulance OP because increased anxiety increased depression lack of appetite lack of sleep. Recently the Lexapro was increased but she is not feeling better. Also having some GI symptoms. Patient has thoughts of hurting herself for the last few days more pronounced but no specific plan. Allergies/Medications Allergies: Coded Allergies: No Known Allergies (10/13/16) Home Med list Escitalopram Oxalate (Lexapro) 20 MG TABLET 1 TAB PO DAILY MENTAL HEALTH ( Reported) Gabapentin (Neurontin) 300 MG CAPSULE 1 CAP PO TID MENTAL HEALTH (Reported) Sertraline HCl 25 MG TABLET 1 TAB PO DAILY MENTAL HEALTH (Reported) Sertraline HCl 100 MG TABLET 1 TAB PO DAILY MENTAL HEALTH (Reported) Sucralfate (Carafate) 1 GRAM/10 ML ORAL.SUSP GERD (Reported) Trazodone HCl 50 MG TABLET 1 TAB PO QPM SLEEP (Reported) Compliance With Home Meds: UNKNOWN Past History Travel History Traveled to [place] past 21 day No Medical History Neurological: NONE EENT: NONE Cardiovascular: NONE Respiratory: NONE Gastrointestinal: GERD Hepatic: NONE Renal: NONE Musculoskeletal: NONE Psychiatric: anxiety, substance abuse Endocrine: NONE Blood Disorders: NONE Cancer(s): NONE CLAIMS AUDITOR/Reproductive: NONE Isolation History: Standard Surgical History Surgical History: non-contributory Review of Systems Review of Systems Constitutional: Reports: see HPI. Exam & Diagnostic Data Last 24 Hrs of Vital Signs/I&O Vital Signs Date Time Temp Pulse Resp B/P B/P Pulse O2 O2 Flow FiO2 Mean Ox Delivery Rate 01/20 0805 96.5 85 142/68 01/19 1941 97.6 75 129/70 01/19 1912 97.6 75 129/70 01/19 1642 98.2 79 16 130/86 98 Room Air 01/19 1510 Room Air Intake & Output 01/20 1600 01/20 0800 01/20 0000 Intake Total Output Total Balance Patient 196 lb Weight Physical Exam General Appearance Alert, Oriented X3, Cooperative, No Acute Distress Skin No Rashes, No Breakdown HEENT PERRLA, EOMI, Mucous Membr. moist/pink Neck Supple, No JVD, No thryomegaly Lymphatic Axillary nl, Cervical nl Cardiovascular Regular Rate, No Murmurs Lungs Clear to Auscultation, Normal Air Movement Abdomen Normal Bowel Sounds, Soft, mild tenderness to deep palpation in epigastric area, no rebound tenderness Neurological Exam Findings: Normal Gait, Normal Speech, Strength at 5/5 X4 Ext, Normal Tone, Sensation Intact, Cranial Nerves 3-12 NL, Reflexes 2+ Cranial Nerves II through XII: intact Extremities No Clubbing, No Cyanosis, No Edema, Normal Pulses, No Tenderness/ Swelling Vascular Normal Pulses, Pulses Symmetrical Last 24 Hrs of Labs/Dean: Laboratory Tests 01/19/18 1506: CBC w Diff NO MAN DIFF REQ, RBC 4.67, MCV 88.3, MCH 29.2, MCHC 33.0, RDW 14.4, MPV 9.0, Gran % 68.8, Lymphocytes % 25.5, Monocytes % 5.4, Eosinophils % 0, Basophils % 0.3, Absolute Granulocytes 5.3, Absolute Lymphocytes 2.0, Absolute Monocytes 0.4, Absolute Eosinophils 0, Absolute Basophils 0 Assessment/Plan As Ranked By This Provider Problem List: 1. Suicidal ideation 2. Anxiety attack 3. Acid reflux 4. Abdominal pain 5. Depression Miscellaneous Miscellaneous Documentation Attending Case Discussed With: Nikhil Rodriguez MD Primary Care Physician: Momo Chong MD Patient sees these Specialists none Level of Patient Care: [facility] Consults Needed: Consulting Specialty: Psychiatry Consulting Physician: Dr Roberto Reason for Consult: Si, depression, panic attacks Resident Review Statement Resident Statement: examined this patient Attending MD Review Statement Attending Statement Attending MD Statement: examined this patient
--- NOTE | 2018-01-20 15:55 | SOCIAL WORKER SOCIAL HX PSYCH ---
Social History Basic Assessment Insurance Authorization: Insurance #1: Insurance name: [employer] Phone number: Policy number: [id number] Group number: Authorization number: Curr Source of Income/Entitlements: basic needs, employment Primary Care Physician: Patient's PCP: Momo Chong MD PCP's Present Problem: The following was obtained from the diagnostic assessment by Trista Schuster LCSW. Present Illness: Pt is a 22 y.o. S/W/F who was sent to the ED from [facility] (unscheduled individual session) for a crisis assessment with consideration for admit due to Gravely disabled/ SI / distress due to severe prolonged anxiety and panic. Pt's mother reporting severity as well. Mother reporting to [facility] that pt made a statement about driving off the road. "Mommy please help me." Pt reporting poor appetite and sleep. Pt with recent increase in lexapro 10 to 20 to help with sx but may be contributing to SI. Pt was scheduled for [facility] yesterday, but missed it due to being at [facility] over night with anxiety and "throwing up blood". Cannabinoid Hyperemesis syndrome. Today, pt called [facility] and asked for help due to severe worsening of panic sx. Below is [facility] staff Zaira Chahal LMSW note. "I have been having a panic attack since Thursday morning and I cannot calm down." Patient explains she was in [place] over the weekend with her mom and moms boyfriend and began feeling very anxious and panicked on Thursday morning. She decided to leave to drive back to [place] , but on the way her panic worsened so badly she had to pull out operator on the side of the road for several hours until her mother could come and pick her up. She reports "my mom was so mad at me and she recorded me crying and screaming on the way home and I didn't like that she recorded me." Patient went to [facility] and was admitted overnight and released yesterday 01/18/18. Patient reports "they gave me ativan to help me calm down." Patient states "I just can't live like this anymore and I don't know what to do." She reports "I have terrible stomach pain that is from stress and I was throwing up blood when I went to [facility]." Patient stated over and over "I'm in so much pain" while holding her stomach. Patient reports last use of cannabis as 01/14/18. Pt presented to [facility] neat and casually dressed. Patient appeared uncomfortable and was rocking back and forth and tapping her feet. She presented with an anxious and tearful mood and reports anxiety 10/10 with 10 being severe. Patient reports SI with no intent or plan. Primary Language? Danish Language(s) Spoken At Home: Danish Living Situation Other Living Arrangement: relative's/guardian's tomasa Feel Safe Where You Are Living Yes Feel Safe in Relationships? Yes Comments: Pt reports residing with her brother and her brother's friend in [place]. Along with three dogs. Allergies - Coded Allergies: No Known Allergies (10/13/16) Current Medications - Scheduled Medications Escitalopram Oxalate (Lexapro) 20 MG TABLET 1 TAB PO DAILY MENTAL HEALTH #15 (Reported) Entered as Reported by Guzman Orona on 01/19/18 1443 Last Taken: 01/19/18 Gabapentin (Neurontin) 300 MG CAPSULE 1 CAP PO TID MENTAL HEALTH (Reported) Entered as Reported by Guzman Orona on 11/19/17 132 Last Taken: 300 MG on 01/19/181942 Sertraline HCl 25 MG TABLET 1 TAB PO DAILY MENTAL HEALTH #30 (Reported) Entered as Reported by Guzman Orona on 11/19/171325 Last Taken: Unknown Dose at an unknown date and time Sertraline HCl 100 MG TABLET 1 TAB PO DAILY MENTAL HEALTH #30 (Reported) Entered as Reported by Guzman Orona on 11/19/17 132 Trazodone HCl 50 MG TABLET 1 TAB PO QPM SLEEP #30 (Reported) Entered as Reported by Guzman Orona on 11/19/171325 Last Taken: 01/18/18 Miscellaneous Medications Sucralfate (Carafate) 1 GRAM/10 ML ORAL.SUSP GERD (Reported) Entered as Reported by Marge Guo on 01/19/182043 Past History Past Medical History Neurological: NONE EENT: NONE Cardiovascular: NONE Respiratory: NONE Gastrointestinal: GERD Hepatic: NONE Renal: NONE Musculoskeletal: NONE Psychiatric: anxiety, substance abuse Endocrine: NONE Blood Disorders: NONE Cancer(s): NONE CLIENT SUCCESS DIRECTOR/Reproductive: NONE Past Surgical History Surgical History: non-contributory /Family History Place/Country of Origin: [place], [place]. Childhood Family Constellation: Mother, father, 2 brothers Primary Childhood Caretakers: father, mother Family Life During Childhood: "fine" DCF Involvement? No Mother's Age (Current/): 51 Relationship w/Mother: "good" Relationship w/Father: "I do not see him much" Any Sibling(s)? Yes Sibling's Gender(s)/Age(s): male Sibling 1: (25), male Sibling 2: (27) Relationship w/Sibling(s): "okay" Relationship w/Friends: "good" Family Psych/Sub Abuse/Add Hx: None reported Number of Pregnancies: 0 Number of Miscarriages: 0 Number of Abortions: 0 Abuse/Trauma History Trauma History/Current Trauma: Denies Legal History Legal Guardian/Address/Phone: Self Current Legal Status: none Pending Court Dates: None Have you ever been arrested No Hx of Juvenile Legal Charges? No Hx of Adult Legal Charges? No Civil Proceedings: None Domestic Relations Court: None Child Protective Serv Involvmnt None Hvac Residential Service Technician None Psychosocial History Primary Support System: mother Strengths/Capabilities: Employed Supportive Mom and mother's Boyfriend would like to go to college Weaknesses: Isolative, high anxiety and distress Physical Limitations (Interventions): none noted Last Physical: 2017 History of Seizures? No History of Blackouts? No ADL Limitations: None [place]/Social/Peer Relations "good" Meaningful Activities: Going on hikes with her dog, being around family and friends. Childhood Congregational: Congregation Current Tenriism Affiliation: Congregation Is Spirituality Important to You? "not really, I do not go to anglican" Patient's Ethnicity: Turkish, Georgian, Faroese Cultural/Ethnic Issues: none reported Are There Developmental Issues? No Milestones Achieved: fine motor, gross motor Psychiatric Treatment History Psych Treatment Inpatient Treatment No Location of Treatment [facility] Reason for Treatment anxiety and panic Dates of Treatment last summer for 4 weeks IOP. STARTED [facility] AND MISSED THURSDAY. 1:1 THERAPIST Response to Treatment MED INCREASED ANXIETY /SI Diagnosis: anxiety panic Psychodynamic Issues: constant anxiety, isolative at times, father not being around Risk Factors: age (under 24/over 65), high anxiety/distress, substance abuse (mo frustrated/ angry not impro) Substance Use/Abuse History Drug Use/Abuse:Min 12 mo hx Substance Used/Abused Marijuana First Use 18 years old Last Used 01/14/18 How much used/taken "a bowl" How often daily or every other day Route of use inhale Have Had Periods of Sobriety? No Have You Ever Attended AA? No Do You Attend AA Currently? No Do You Have a Sponsor? No Substance Abuse Treatment Substance Abuse Treatment Inpatient Treatment No Outpatient Treatment No Sexual History Sexually Active No Sexual Orientation Heterosexual Sexual Concerns: none reported Education History Highest Level of Education: high school/GED Highest Grade Completed: 12 Number of College Years: 0 Preferred Learning Style: experiential HX of Learning Difficulties: None reported, Speech therapy Barriers to Learning: None reported Special Communication Needs: None reported Employment History Employment Employed No. of Jobs in Last 5 Years: 5 Attendance: Normal Performance: Good Comments: Pt reports her attendance and performance is good but recently has been below average due to her high anxiety. History Have You Been in The ? No Current Mental Status Mental Status Orientation: Person, Place, Situation Affect: Anxious, Appropriate (tearful), Sad, Variable Speech: Soft, WNL Neuro-vegetative: Appetite Decreased, Concentration Poor, Energy Decreased, Helpless, Sleep Disturbance Appearance Appearance- Dress/Hygiene: pt is dressed in her own clothing, recently showered with wet hair, good hygiene. Behaviors Thought Process: WNL Thought Content: WNL, fearful of next panic /doom Memory: WNL Insight: Fair SI/HI Risk Assessment Past Suicidal Ideation/Attempts Yes Current Suicidal Ideation/Att No Past Homicidal Ideation/Att: No Current Homicidal Ideation/Attempts No Degree of Intent: None (was driving while thoughts), Thoughts/No Intent (was driving and thinknig about) Danger To: Self Gravely Disabled: Poor Judgment (when having panic severe ) Risk Factors: High Anxiety/Distress, Poor impulse control, Substance Abuse Lethality Ratin - Conclusion and Recommendations for treatment - and discharge planning Summary: Front End Driver was able to meet with pt and complete social history. Pt denied SI and HI currently. pt was soft spoken and slightly tearful. Pt reports settling into the unit and going to groups but does not talk much because she rather listen than talk herself. Pt is future oriented and wanting to start college to become a director veterinary, she shared her love for animals and her two dogs that she goes on hikes with. Pt expressed she is anxiously waiting to meet with a social science teacher and that her mother has called several times to see if she has met with someone.
--- NOTE | 2018-01-20 17:28 | SOCIAL WORKER PROG NOTE PSYCH ---
Social Work Progress Note Progress Note This service writer advisor received a call/vm from Julita Ann with first episode psychosis through [facility]. She stated that they requested the patient to be assessed for schizophrenia during her last hospital admission and requested that this was relayed to the psyschiatrist. Message was left for Dr. Rodriguez. This service writer advisor met with patient. She stated that she came to the hospital due to "struggling [facility] anxiety," and shared that her anxiety is usually worse in the morning. She stated that she began to notice anxiety about 2 years ago when she suffered multiple losses. Patient stated that her anxiety has resulted in "puking, thrashing and sweating." She was treated in [facility] ED and "admitted upstairs for one night because I was throwing up blood." She denied experiencing depression stating that "I have a good life." She denied SI/HI/AH/ VH. Patient stated that she has been hospitalized once before at [facility] in July 2016 for similar anxiety. She stated that she was in IOP prior to coming to the hospital. She stated that she has also been in individual therapy with Cortes Ray in [place]. She discontinued treatment with Cortes due to being informed that her insurance would not cover individual and IOP. However, she would like to do both if possible. Patient stated that she smoked MJ occassionally/socially - about 1 bowl shared with others. She denied any other substance use and denied alcohol use. Patient stated that her stomach cannot tolerate alcohol and also stated that there is alcoholism in the family. Patient denied any current or past legal or DCF involvement. She stated that she lives with her brother and his friend. Patient stated that she recently broke up with her boyfriend after 4 years, attributing relationship stressors as due to her anxiety. Patient would like a fmaily meeting with her mother, Kirti Servin ([phone]).
[2018-01-20 19:46] VITALS: BP 119/72
[2018-01-21 08:28] VITALS: BP 111/75
--- NOTE | 2018-01-21 14:52 | CP SOUTH PROGRESS NOTE PSYCH ---
Psych (Inpt) Progress Note Progress Note Vital Signs Date Time Temp Pulse B/P B/P O2 FiO2 01/22 0828 97.2 92 111/75 01/20 1946 97.0 67 119/72 Mental Status Examination Ambulation Status: Steady gait Cooperative Increased psychomotor activity No bizarre behaviors Not pressured/not slurred Euthymic Anxious Denied thinking of suicide, Denied thinking of homicide Denied hallucinations Denied feeling paranoid Coherent Limited insight, Alert and oriented to time place and person Difficulties with attention and concentration Assessment: 22-year-old single white female who was admitted because of severe anxiety. Patient has been struggling with anxiety at least since October 2016 Diagnosis(es): Unspecified depressive disorder Panic disorder R/o F12.280 Cannabis-induced Anxiety Disorder, with onset of symptoms during withdrawal r/o F31.30 Unspecified Bipolar Disorder F12.20 - Cannabis Use D/O, severe, F12.188 - Cannabinoid Hyperemesis syndrome Treatment Plan Update: Increase Klonopin to 1.5 mg at bedtime Increase Famotidine to 40 mg BID Increase gabapentin to 900 mg 3 times a day Continue other medications unchanged
--- NOTE | 2018-01-21 17:01 | SOCIAL WORKER PROG NOTE PSYCH ---
Social Work Progress Note Progress Note 10am This poem writer met with the patient to inform of the family meeting that has been scheduled for 10:30am with her mother this morning. She was in bed, crying and rocking back and forth. Patient stated that she was having a panic attack rating her anxiety at 10+/10. Patient was able to identify disctractions strategies that she could utilize such as watching the fish or coloring. Patient was ultimately able to report reduced anxiety to a 9/10 and felt comfortable walking over to the fish tank to watch the fish. 10:30am Dr. Rodriguez, Maki River (PA student) and this poem writer met with the patient and her mother, Kirti. Kirti discussed worsening of symptoms and stressors that the patient has been experiencing. Specifically, she referred to multiple losses. Kirti shared that they had been reaching out for help multiple times, but did not feel that help was provided. Kirti did not have any safety concerns for the patient. Both the patient and her mother denied that the patient engaged in any substance use other than MJ. Kirti reported that the patient had a kidney infection about 1 1/2 years ago and wondered if this was associated with the patient's increased anxeiety. Patient shared the conversation from earlier this morning and identified how she utilized distraction. She reported her anxiety at a 7/10 at the time of this family meeting. Dr. Rodriguez addressed medication questions and concerns. We also discussed discharge plans, specifically regarding [facility] IOP and individual therapy with [facility]. Patient was informed that this poem writer spoke with [facility] and was told that insurance would cover both services. 3:39pm This poem writer left for Cortes Ray LPC ([phone]) requesting a call back with call back number.
[2018-01-21 20:15] VITALS: BP 138/87
[2018-01-22 08:19] VITALS: BP 139/78
--- NOTE | 2018-01-22 12:13 | CP SOUTH PROGRESS NOTE PSYCH ---
Psych (Inpt) Progress Note Progress Note Vital Signs Vital Signs Date Time Temp Pulse Resp B/P B/P Pulse O2 O2 Flow FiO2 Mean Ox Delivery Rate 01/22 819 96.4 89 139/78 01/21 2015 97.4 78 138/87 Mental Status Examination Ambulation Status: Steady gait, Cooperative, Increased psychomotor activity, No bizarre behaviors, Not pressured/not slurred, Euthymic, not anxious today, Denied thinking of suicide, Denied thinking of homicide, Denied hallucinations Denied feeling paranoid, Coherent, Limited insight, Alert and oriented to time place and person Difficulties with attention and concentration Assessment: 22-year-old single white female who was admitted because of severe anxiety. Patient has been struggling with anxiety at least since October 2016 Diagnoses: Unspecified depressive disorder Panic disorder R/o F12.280 Cannabis-induced Anxiety Disorder, with onset of symptoms during withdrawal r/o F31.30 Unspecified Bipolar Disorder F12.20 - Cannabis Use D/O, severe, F12.188 - Cannabinoid Hyperemesis syndrome Treatment Plan Update: D/C Home
[2018-01-22] MEDS ORDERED: CARAFATE1 G1 PO (13:19)
[2018-01-22] MEDS ORDERED: TRAZODONE HCL50 M1 PO (13:19)
[2018-01-22] MEDS ORDERED: LEXAPRO20 M1 PO (13:19)
--- NOTE | 2018-01-22 13:22 | Patient Discharge Instructions ---
Psych Discharge Inst General Discharge Information Reason for Admission: thoughts of suicide Psy Discharge Primary Diag+ unspecified depressive DO Psy Discharge Secondary Diag+ Panic Disorder Summary Tests/Major Procedures No significant abnormalities in lab testing Studies Pending at DC: None Patient Instructions Contact Information Your Psychiatrist on [facility] was Nikhil Rodriguez MD * If you are experiencing an emergency related to this hospitalization, please call [phone] to contact the treating psychiatrist or the psychiatrist-on- call. * To Request a copy of your medical records, please contact the Medical Records Department at [phone]. * To request results of studies pending at the time of discharge, please call [phone]. * Continue your Medications until directed to stop by your Healthcare provider. General Medication Information Please continue to take your new medications and your continued home medications , unless otherwise indicated on your discharge medication list, or unless directed by your MD or PATENT PROSECUTION ATTORNEY to stop them. Special Instructions Diet Regular Activity Normal - Tobacco Use Treatment Offered Post DC Medications Offered: Not Applicable Post DC Tobacco Treatment Plan: Not Applicable - EtOH/Drug Use D/O Treatment Offered Post DC Medications Offered: NA-No EtOH/Drug Use D/O Post DC EtOH/SubAbuse [place] Plan: NA-No EtOH/Drug Use D/O Advance Directives Does the Patient have Medical Advance Directives No/Refused further info Does Pt have Psychiatric Advance Directives? No/Refused further info Does Patient have a Designated Surrogate Decision Maker: No Information About Psychiatric Advance Directives Provided? Refused Discharge Plan Post Hospital Treatment Plan: [facility]
[2018-01-22] MEDS ORDERED: CLONAZEPAM0.5 M2 PO (13:25)
[2018-01-22] MEDS ORDERED: NEURONTIN300 M1 PO (13:56)
--- NOTE | 2018-01-22 16:50 | SOCIAL WORKER PROG NOTE PSYCH ---
See Addendum Social Work Progress Note Progress Note This life underwriter received call from patient's mother, Nicole, prior to this morning's team meeting. She stated that she met with the patient last night and felt that she had improved and that the Gabapentin was helpful. She described the patient as "happy" last night and shared that the patient had stated, "I feel like Aleksandra again." Patient's mother was informed that this life underwriter and the patient would contact her once a discharge time is identified. Dr. Rodriguez, Maki River (PA student) and this life underwriter met with the patient. She reported improvement with anxiety and discussed being able to manage her usual morning anxiety more effectively today. As her mother had reported, patient stated, "I feel like Aleksandra again." She presented with a smile on her face and with good eye contact. She denied SI/HI/AH/VH and identified a safety plan to "call my mom or come back here []." Patient also accepted the crisis and warm line numbers upon discharge today. This life underwriter had been informed by the OT, Marcie Burnett, that the patient had reported during group that there was a gun in the home. This was addressed during the meeting with Dr. Rodriguez and Imani iRver. Patient confirmed this and stated that she does not have access to the gun. She was agreeable to this being confirmed by Dr. Rodriguez or this life underwriter prior to discharge. 1:30pm This life underwriter. Imani River and the patient spoke with the patient's brother, Giovanni Adame ([phone]), by phone who confirmed that the gun in the home is locked and that the patient cannot access it. He also stated that there were no other guns/weapons in the home. Patient denied SI/HI/AH/VH and accepted the [facility] intake time of 01/25/18 at 1: 15pm. We called her mother to discuss discharge plans and safety plan. She was agreeable to these plans and will provide transportation home from the hospital today. At her request, patient was provided with a letter indicating dates of admission and discharge. Faxed Referral(s) Referred To: [facility] Transition of Care Documents sent: Health Summary Faxed to: [facility] Fax #: [phone] Faxed by: Ruben Ferris LCSW Date faxed: 01/22/18 Time Faxed: [phone]
== END 2018-01-22 14:17 | DRG 754 ==
LOC: ERH 12:57 → ERHI 15:42 → CP SOUTH 15:42
PROVIDERS: Physician Assistant
DX: F32.9 Major depressive disorder, single episode, unspecified (principal); F41.0 Panic disorder [episodic paroxysmal anxiety]
CPT/HCPCS: 80307; G0463; G0480; J0515; J1630; J3101